=== PATIENT | female | born 1960 | race American Indian/Alaskan Native ===

== ENCOUNTER 2020-12-19 14:29 | Outpatient (REF) | payer OTHER, SELFPAY ==
[2020-12-19 16:39] LABS: Estimated Average Glucose 111 mg/dL; Hemoglobin A1c % 5.5 %
[2020-12-19 16:58] LABS: Alanine Aminotransferase 12 U/L (0-31); Albumin Level 4.1 g/dL (3.5-5.0); Alkaline Phosphatase 74 U/L (39-117); Anion Gap 16 (12-20); Aspartate Amino Transferase 12 U/L (5-31); Bilirubin Direct 0.2 mg/dL (0.0-0.5); Bilirubin Total 0.7 mg/dL (0.0-1.0); Blood Urea Nitrogen 22 mg/dL (9-16); Calcium 9.1 mg/dL (8.4-10.2); Carbon Dioxide 29 mmol/L (22-29); Chloride 99 mmol/L (96-108); Estimated Glomerular Filt Rate 46; Glucose Random 177 mg/dL (60-115); Potassium 3.8 mmol/L (3.3-5.1); Sodium 140 mmol/L (135-145); Total Protein 7.1 g/dL (6.5-8.0)
[2020-12-20 07:07] LABS: LDL Cholesterol Direct 108 mg/dL (<100)
== END 2020-12-19 14:30 | disposition home or self-care (01) ==
LOC: HO.HMGCLDS 14:29
PROVIDERS: PCP Internal Medicine; Visit Provider Internal Medicine
DX: E13.9 Other specified diabetes mellitus without complications (principal); I10 Essential (primary) hypertension; F41.1 Generalized anxiety disorder
CPT/HCPCS: 36415; 80048; 80076; 83036; 83721

== ENCOUNTER 2020-12-23 10:58 | Outpatient (REF) | payer OTHER, SELFPAY ==
[2020-12-23 14:47] LABS: Creatinine Urine 116.94 mg/dL; Microalbum/Creatinine Ratio Ur 5.9 ug/mg cr
== END 2020-12-23 10:59 | disposition home or self-care (01) ==
LOC: HO.HMGCLNP 10:58
PROVIDERS: Visit Provider Internal Medicine
DX: E13.9 Other specified diabetes mellitus without complications (principal); I10 Essential (primary) hypertension; F41.1 Generalized anxiety disorder
CPT/HCPCS: 82043

== ENCOUNTER 2021-05-05 12:38 | Outpatient (REF) | payer OTHER, SELFPAY ==
--- NOTE | ~2021-05-05 | XR_ITS ---
EXAMINATION: XR KNEE, LEFT CLINICAL INFORMATION: Pain in left knee COMPARISON: None TECHNIQUE: Four nonweightbearing views of the left knee. FINDINGS: Marginal osteophytes without definite joint space narrowing involving all compartments. This is most prominent in the patellofemoral compartment. Fabella versus loose body overlies the posterior recess. No effusion. XR/XR knee LT 4V IMPRESSION: Osteoarthritis of the left knee
== END 2021-05-05 12:39 | disposition home or self-care (01) ==
LOC: HO.XRAY 12:38
PROVIDERS: PCP Internal Medicine; Visit Provider Internal Medicine
DX: M25.562 Pain in left knee (principal)
CPT/HCPCS: 73564

== ENCOUNTER → 2021-05-12 12:58 | Outpatient (BNVA) | payer OTHER, SELFPAY | PROVIDERS: Visit Provider Orthopaedic Surgery | DX: M17.11 Unilateral primary osteoarthritis, right knee (principal) | CPT/HCPCS: 20610; 99202; J1040 ==

== ENCOUNTER 2022-01-04 12:19 | Emergency (ER) | payer OTHER, SELFPAY ==
--- NOTE | ~2022-01-04 | CT_ITS ---
EXAMINATION: CT OF THE HEAD WITHOUT CONTRAST CT CERVICAL SPINE WITHOUT CONTRAST CLINICAL INFORMATION: Unable to move left arm for one month. Paresthesias upper extremities. COMPARISON: None. TECHNIQUE: Contiguous axial imaging was performed from the skullbase to vertex without intravenous administration of contrast. Multidetector helical imaging was performed through the cervical spine. DOSE LOWERING TECHNIQUES: This CT examination was performed using dose optimization techniques as appropriate, variously including the following: - Automated exposure control - Adjustment of mA and/or kV according to patient size (this includes techniques or standardized protocols for targeted exams where dose is matched to indication/reason for exam; i.e. extremities or head) - Use of iterative reconstruction technique Dose-Length Product in mGycm: 780.4 FINDINGS: Head: There is no evidence of acute intracranial hemorrhage or territorial infarction. No abnormal mass-effect or midline shift is seen. [place] to white matter differentiation is well preserved. No extra-axial fluid collections are identified. The ventricles are normal in size. There are patchy areas of subcortical and deep cerebral white matter low attenuation. There is no prior for comparison. The osseous structures and soft tissues are normal. The mastoid air cells and visualized portions of the paranasal sinuses are well-aerated. Cervical spine: Straightening of normal lordosis. No prevertebral soft tissue swelling. Advanced degenerative changes at C3-C4, C4-C5 and C5-C6 with posterior disc osteophyte complexes that narrow the thecal space to 6 mm at C5-C6. The discs disease narrows the neural foramina bilaterally at C3-C4 (mild) and C4-C5 (moderate). There is a moderate left pleural effusion measuring simple fluid density. CT/CT cervical spine wo con IMPRESSION: No evidence of territorial infarct or hemorrhage. Patchy areas of subcortical and deep cerebral white matter hypoattenuation are nonspecific and may reflect chronic small vessel ischemic change. However, no priors available for comparison. In light of the patient's symptoms, demyelinating disease or other processes could have a similar appearance. Recommend MRI without and with intravenous contrast. No cervical spine fracture. Advanced degenerative changes at C3-C6 with neural foraminal narrowing bilaterally as above. Moderate left pleural effusion.
[2022-01-04 12:48] VITALS: BP 113/44; BP 135/65; PULSE 66; RESP 18; TEMP 37; O2SAT 100; O2SAT 95; BMI 47.5
--- NOTE | 2022-01-04 12:50 | ED.GENADULT ---
HPI - General Adult General Chief complaint: Weakness Stated complaint: BUE SWELLING/PAIN,NO INJURY PER SNF Time Seen by Provider: 01/04/22 12:28 Source: patient and EMS Mode of arrival: EMS Limitations: no limitations History of Present Illness HPI narrative: Patient comes from a shelter facility via EMS, complaining of bilateral upper extremity paresthesias for 1 month. Also, patient states that for the last month she has been unable to move her left arm. It has documentation from [facility], on December 28, physical exam revealed that the patient had weakness in both upper and lower extremities, but more marked on the left arm. According to the patient, nothing has changed since then. Patient reports no new symptoms. Related Data Home Medications Medication Instructions Recorded Confirmed cholecalciferol (vitamin D3) 25 25 mcg PO DAILY 10/16/20 04/15/21 mcg (1,000 unit) capsule minocycline 100 mg capsule 100 mg PO BID 10/16/20 04/15/21 venlafaxine 150 mg 150 mg PO DAILY 10/16/20 04/15/21 capsule,extended release 24 hr zolpidem 10 mg tablet 10 mg PO BEDTIME PRN 10/16/20 04/15/21 Previous Rx's Medication Instructions Recorded Walker with wheels #1 ea 05/22/21 glipizide 10 mg tablet, extended 10 mg PO DAILY 90 Days #90 tab 07/22/21 release 24 hr atenolol 50 mg-chlorthalidone 25 1 tab PO DAILY 90 Days #90 tab 08/21/21 mg tablet metformin 750 mg tablet,extended 750 mg PO DAILY 90 Days #90 tab 08/21/21 release 24 hr Allergies Allergy/AdvReac Type Severity Reaction Status Date / Time orange Allergy Unknown HIVES Verified 01/04/22 12:47 Review of Systems Review of Systems: Constitutional : No Weight loss, No Fever, No Chills, No Night Sweats, No Fatigue, No Malaise ENT/Mouth : No Hearing loss, No Ear Pain, No Nasal Congestion, No Sinus Pain, No Hoarseness, No sore throat, No Rhinorrhea, No Swallowing Difficulty Eyes: No Eye Pain, No Swelling, No Redness, No Foreign Body, No Discharge, No Vision Changes Cardiovascular : No Chest Pain, No SOB, No Dyspnea on Exertion, No Orthopnea, No Edema, No Palpitations Respiratory : No Cough, No Sputum, No Wheezing, No Smoke Exposure, No Dyspnea Gastrointestinal : No Nausea, No Vomiting, No Diarrhea, No Constipation, No abdominal Pain, No Hematochezia, No Melena Genitourinary : no irregular bleeding, No Dysuria, No Urinary Frequency, No Hematuria, No Urinary Incontinence, No Urgency, No Flank Pain, No Urinary Flow Changes, No Hesitancy Musculoskeletal : Complaining of chronic back pain, no changes, complaining of chronic bilateral extremity weakness and numbness and tingling Skin : No Skin Lesions, No rash Neuro : No Weakness, No Numbness, No Paresthesias, No Loss of Consciousness, No Dizziness, No Headache Psych : No Anxiety/Panic, No Depression, No SI/HI/AH/VH, No Social Issues, Heme/Lymph: No Bruising, No Bleeding,No Lymphadenopathy Endocrine : No Polyuria, No Polydipsia, No Temperature Intolerance [facility] Past Medical History Medical History Anxiety, generalized Diabetes 1.5, managed as type 2 Difficulty sleeping Hypertension, essential Family History Family History Other Mental health disorder Social History Social History Housing: Other (mobile home) Alcohol intake: never Patient Tobacco Use Status: Former Tobacco user Quit Date: quit 8 years ago Advance Directives: No Advance Directives Information Provided: No Current occupational status: disabled Physical Exam ED Vital Signs: Vital Signs - 24 hr 01/04/22 12:48 01/04/22 14:28 Temperature 98.6 F Pulse Rate 66 63 Respiratory Rate 18 18 Blood Pressure 113/44 L 120/48 L Pulse Oximetry 95 97 BMI result Body Mass Index 47.5 Const Other: Appearance: Alert. Oriented X3. No acute distress. Patient is bedbound Eyes: Pupils equal, round and reactive to light. ENT: Pharynx normal. Neck: Normal inspection. Neck supple. No lymph nodes noted. No crepitus CVS: Normal heart rate and rhythm. Pulses normal. Normal S1 and S2 Respiratory: No respiratory distress. Breath sounds normal. No Wheezing. No rales Abdomen: Soft and nontender. No rigidity. No distention. good BS x4 Skin: Skin warm and dry. Normal skin color. Normal skin turgor. Extremities: Chronic lymphedema in upper and lower extremities, patient unable to move her left upper extremity Neuro: Oriented X 3. No motor deficit. No sensory deficit. Moving all extermities. No slurred speech. Course Course Course Narrative: Patient has no acute symptoms. Patient has already been seen and evaluated for her ongoing and chronic bilateral upper extremity paresthesias and weakness on the left arm. At this time, patient has not had a CT scan of the brain/cervical spine. We will go ahead and obtain it today I discussed the CT findings with the patient and her family who is at bedside. Patient will likely need an MRI to rule out demyelinating disease. Patient instructed to follow-up with her primary care physician Medical Decision Making Imaging Data CT scan of the brain and cervical spine: Radiologist's impression: Head: There is no evidence of acute intracranial hemorrhage or territorial infarction. No abnormal mass-effect or midline shift is seen. [place] to white matter differentiation is well preserved. No extra-axial fluid collections are identified. The ventricles are normal in size. There are patchy areas of subcortical and deep cerebral white matter low attenuation. There is no prior for comparison. The osseous structures and soft tissues are normal. The mastoid air cells and visualized portions of the paranasal sinuses are well-aerated. Cervical spine: Straightening of normal lordosis. No prevertebral soft tissue swelling. Advanced degenerative changes at C3-C4, C4-C5 and C5-C6 with posterior disc osteophyte complexes that narrow the thecal space to 6 mm at C5-C6. The discs disease narrows the neural foramina bilaterally at C3-C4 (mild) and C4-C5 (moderate). There is a moderate left pleural effusion measuring simple fluid density. CT/CT cervical spine wo con IMPRESSION: No evidence of territorial infarct or hemorrhage. Patchy areas of subcortical and deep cerebral white matter hypoattenuation are nonspecific and may reflect chronic small vessel ischemic change. However, no priors available for comparison. In light of the patient's symptoms, demyelinating disease or other processes could have a similar appearance. Recommend MRI without and with intravenous contrast. ? No cervical spine fracture. Advanced degenerative changes at C3-C6 with neural foraminal narrowing bilaterally as above. ? Moderate left pleural effusion. Discharge Plan Discharge Clinical Impression: Paresthesia, Upper extremity weakness Patient Disposition: Home, Self-Care Instructions: Paresthesia (ED) Additional Instructions: Please follow-up with your primary care physician tomorrow. It is likely that you will need an MRI to rule out demyelinating disease. If you have any worsening or new symptoms, please return to the emergency room or call 911 Prescriptions: No Action (DME) Walker with wheels See Rx Instructions .Route .MEDSUPPLY Qty: 1 0RF Rx Instructions: As directed glipizide 10 mg tablet extended release 24hr 10 mg PO DAILY 90 Days Qty: 90 0RF metformin 750 mg tablet extended release 24 hr 750 mg PO DAILY 90 Days Qty: 90 0RF atenolol-chlorthalidone 50-25 mg tablet 1 tab PO DAILY 90 Days Qty: 90 0RF minocycline 100 mg capsule 100 mg PO BID 0RF venlafaxine 150 mg capsule,extended release 24hr 150 mg PO DAILY 0RF zolpidem 10 mg tablet 10 mg PO BEDTIME PRN0RF cholecalciferol (vitamin D3) 25 mcg (1,000 unit) capsule 25 mcg PO DAILY 0RF
[2022-01-04 14:28] VITALS: BP 120/48; PULSE 63; RESP 18; O2SAT 97
--- NOTE | 2022-01-04 16:21 | PC.NURSE ---
Pt D/C from ER with instructions. Pt states understanding and denies any further questions. Transport in process of set up back to pt's [facility].
== END 2022-01-04 17:59 | disposition home or self-care (01) ==
PROVIDERS: Emergency Provider Emergency Medicine; PCP Internal Medicine
DX: R20.2 Paresthesia of skin (principal); R53.1 Weakness; E13.9 Other specified diabetes mellitus without complications; I10 Essential (primary) hypertension
CPT/HCPCS: 70450; 72125; 99283; 99284

== ENCOUNTER 2023-02-08 12:06 | Outpatient (REF) | payer OTHER, SELFPAY ==
--- NOTE | ~2023-02-08 | XR_ITS ---
EXAMINATION: XR HIP, RIGHT CLINICAL INFORMATION: Unspecified fall. Pain. COMPARISON: None available. TECHNIQUE: Two views of the right hip. FINDINGS: There is complete right subtrochanteric fracture with overriding of fracture fragments. No dislocation seen. The soft tissues are normal. XR/XR hip RT 1V IMPRESSION: Subtrochanteric fracture right femur with overlapping of fragments. There is no dislocation.
[2023-02-08 13:51] LABS: MANUAL DIFF FLAG NO
[2023-02-08 14:06] LABS: Basophils Absolute Auto 0.1 X10*3/uL (0.0-0.2); Basophils Percent Auto 0.5 % (0-2); Eosinophils Absolute Auto 0.1 X10*3/uL (0.0-0.4); Eosinophils Percent Auto 1.5 % (0-4); Hematocrit 26.1 % (37.0-47.0); Hemoglobin 9.1 g/dl (12.0-16.0); Imm Gran Abs Auto 0.08 X10*3/uL (0.00-0.03); Imm Gran Pct Auto 0.8 % (0.0-0.4); Lymphocytes Percent Auto 10.8 % (20-40); Mean Corpuscular HGB Conc 34.9 g/dl (31.0-35.0); Mean Corpuscular Hemoglobin 31.6 pg (27.0-33.0); Mean Corpuscular Volume 90.6 fL (80.0-98.0); Mean Platelet Volume 10.7 fL (9.4-12.3); Monocytes Absolute Auto 0.5 X10*3/uL (0.1-1.2); Monocytes Percent Auto 5.3 % (2-11); Neutrophils Absolute Auto 7.7 x10*3/uL (2.0-8.3); Neutrophils Percent Auto 81.1 % (45-73); Platelet Count 190 X10*3/uL (160-400); Red Blood Count 2.88 X10*6/uL (4.20-5.50); White Blood Count 9.5 X10*3/uL (4.8-10.8)
[2023-02-08 14:14] LABS: Estimated Average Glucose 111 mg/dL; Hemoglobin A1c % 5.5 %
[2023-02-08 14:44] LABS: Alanine Aminotransferase 15 U/L (0-31); Albumin Level 3.6 g/dL (3.5-5.0); Alkaline Phosphatase 75 U/L (39-117); Anion Gap 15 (12-20); Aspartate Amino Transferase 24 U/L (5-31); Bilirubin Total 0.7 mg/dL (0.0-1.0); Blood Urea Nitrogen 35 mg/dL (9-16); Calcium 8.5 mg/dL (8.4-10.2); Carbon Dioxide 24 mmol/L (22-29); Chloride 105 mmol/L (96-108); Estimated Glomerular Filt Rate 31; Glucose Random 227 mg/dL (60-115); Potassium 3.1 mmol/L (3.3-5.1); Sodium 141 mmol/L (135-145)
[2023-02-08 15:00] LABS: TSH reflex Free T4 3.01 uIU/mL (0.32-4.0)
[2023-02-10 07:03] LABS: LDL Cholesterol Direct 61 mg/dL (<100)
== END 2023-02-08 12:07 | disposition home or self-care (01) ==
LOC: HO.HMGCX 12:06
PROVIDERS: PCP Internal Medicine; Visit Provider Internal Medicine
DX: M25.551 Pain in right hip (principal); E13.9 Other specified diabetes mellitus without complications; E66.01 Morbid (severe) obesity due to excess calories; G82.50 Quadriplegia, unspecified; I10 Essential (primary) hypertension; W19.XXXA Unspecified fall, initial encounter
CPT/HCPCS: 36415; 73501; 80053; 83036; 83721; 84443; 85025

== ENCOUNTER 2023-08-05 07:49 | Outpatient (AMB) | payer MEDICAID, SELFPAY ==
--- NOTE | 2023-08-05 07:51 | MHC.PC.OV ---
Intake Visit Reasons: F/u 4 month [phone] (android) Allergies orange Allergy (Unknown, Verified 02/08/23 11:49) HIVES Medication List - Last Reconciled 08/05/23 by Evan Bates MD amlodipine 10 mg PO .Q AM ascorbic acid (vitamin C) 250 mg PO BID bupropion HCl 150 mg PO BEDTIME calcium carbonate 500 mg PO TID 90 days cholecalciferol (vitamin D3) 25 mcg PO DAILY citalopram 40 mg PO DAILY cyanocobalamin (vitamin B-12) (Vitamin B-12) 1,000 mcg PO DAILY ferrous sulfate 325 mg PO TID 90 days folic acid 1 mg PO DAILY furosemide 40 mg PO DAILY insulin glargine (Lantus Solostar U-100 Insulin) 32 units (0.32 mL) subcut QPM 90 days metoprolol succinate ER 100 mg PO DAILY pen needle, diabetic As directed [Walker with wheels As directed] Tobacco use date assessed: 08/05/23 Dental Screening Dental Screen Date: 08/05/23 HPI F/u 4 month [phone] (android) HPI Details Patient is 62-year-old female this is a tele medicine visit after being discharged from she could be rehab on 07/08/2023, admission date was 03/30/2023 For detailed history please see my previous notes. 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 Patient presented to ER for increasing weakness and wanted a rehab. 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 along with metoprolol 100 mg once a day for blood pressure controlled Patient was discharged with potassium chloride 20 mEq for hypokalemia we need to repeat labs She is also on iron supplement Patient is to continue Celexa 40 mg and bupropion 150 mg for depression and anxiety. Her is checking her blood sugars at home however he tells me that patient ran out of insulin and he is only giving her metformin I have sent Lantus patient is on 32 units at night, we should hold metformin due to kidney disease. is also monitoring blood sugar but since patient does not have insulin it was 212 at night. They also need a script for diapers patient is wearing 2 XL and it is being changed 3 times a day Patient have a FORMSTONE [employer]TER come over 2 times a day in the morning and at night for personal hygiene. She also have a physical therapist that comes over 2 times a week. All medications need refill. We will book and other appointment in 2 months [facility] Medical History Difficulty sleeping Anxiety, generalized Diabetes 1.5, managed as type 2 Hypertension, essential Family History Other Mental health disorder Social History Housing: Other (mobile home) Alcohol intake: never Patient Tobacco Use Status: Former Tobacco user Quit Date: quit 8 years ago e-Cigarette/Vaping Use: Never Used Current occupational status: disabled Cognitive needs: No Hearing needs: No Vision needs: No Questionnaire PHQ-9 Over the last 2 weeks, how often have you been bothered by any of the following problems? 1. Little interest or pleasure in doing things: more than half the days 2. Feeling down, depressed, or hopeless: more than half the days 3. Trouble falling or staying asleep, or sleeping too much: nearly every day 4. Feeling tired or having little energy: nearly every day 5. Poor appetite or overeating: not at all 6. Feeling bad about yourself - or that you are a failure or have let yourself or your family down: more than half the days 7. Trouble concentrating on things, such as reading the newspaper or watching television: not at all 8. Moving or speaking so slowly that other people could have noticed. Or the opposite - being so fidgety or restless that you have been moving around a lot more than usual: nearly every day 9. Thoughts that you would be better off or of hurting yourself in some way: not at all Total score: 15 Depression Screening Interpretation: Positive Depression Screening Follow-up: Existing condition and In treatment Depression Screening Done: Yes 71749 - PHQ-9 Billing: Yes Source: Developed by Drs. Xavier Neal, Brianne Flores, Fran Cifuentes and colleagues, with an educational sepideh from [employer]. Thrive Questionnaire Date Thrive assessed: 04/15/21 AUDIT C Alcohol Use Questionnaire (AUDIT-C) 1. How often do you have a drink containing alcohol?: Never 3. How often do you have six or more drinks on one occasion?: Never Total Score: 0 Review of Systems Const Denies chills, Denies fever(s), Denies night sweats and Denies weight loss Eyes Denies blurry vision and Denies eye discharge ENT Denies dysphagia, Denies sinus pressure and Denies sore throat Card Denies chest pain at rest and Denies palpitations Resp Denies chest congestion, Denies cough and Denies hemoptysis GI Denies dysphagia and Denies nausea Skin/Breast Denies pruritus, Denies non-healing lesions and Denies rash Psych Denies panic attacks and Denies paranoia Endo Denies cold intolerance, Denies heat intolerance and Denies palpitations Papito/Lymph Denies easy bleeding Physical exam (Primary Care) Tobacco/Smoking Status: Tobacco use Status Tobacco use date assessed 08/05/23 08/05/23 08:06 Patient Tobacco Use Status Former Tobacco user 08/05/23 07:53 e-Cigarette/Vaping Use Never Used 08/05/23 07:53 PHQ-9: PHQ-9 Score PHQ-9: Total score 15 08/05/23 08:18 Depression Screening Interpretation: Positive Depression Screening Follow-up: Existing condition and In treatment Thrive Assessment: Date of Thrive Assessment Date Thrive assessed 04/15/21 08/05/23 07:53 Telehealth Telehealth Location of provider rendering services: practice address Location of patient: address on file Patient Identification confirmed using: Name, : Yes Telehealth method: video Patient verbally consented to treatment: Yes Patient verbally consented to billing insurance company: Yes Patient informed of any privacy concerns related to visit: Yes Assessment and Plan Assessment & Plan (1) Quadriplegia: Code(s): G82.50 - Quadriplegia, unspecified (2) Fecal soiling due to fecal incontinence: Code(s): R15.9 - Full incontinence of feces (3) Incontinence overflow, urine: Code(s): N39.490 - Overflow incontinence (4) Diabetic neuropathy: Code(s): E11.40 - Type 2 diabetes mellitus with diabetic neuropathy, unspecified Qualifiers: Diabetes mellitus complication detail: diabetic polyneuropathy Diabetes mellitus type: type 2 Qualified Code(s): E11.42 - Type 2 diabetes mellitus with diabetic polyneuropathy (5) Morbid obesity due to excess calories: Code(s): E66.01 - Morbid (severe) obesity due to excess calories (6) Anxiety, generalized: Code(s): F41.1 - Generalized anxiety disorder (7) Diabetes 1.5, managed as type 2: Code(s): E13.9 - Other specified diabetes mellitus without complications (8) Hypertension, essential: Code(s): I10 - Essential (primary) hypertension (9) Major depression, recurrent: Code(s): F33.9 - Major depressive disorder, recurrent, unspecified Qualifiers: Active/Remission status: in partial remission Qualified Code(s): F33.41 - Major depressive disorder, recurrent, in partial remission (10) Chronic kidney disease, stage 3b: Code(s): N18.32 - Chronic kidney disease, stage 3b (11) Insulin dependent type 2 diabetes mellitus: Code(s): E11.9 - Type 2 diabetes mellitus without complications; Z79.4 - snf (current) use of insulin (12) watermaster (current) use of insulin: Code(s): Z79.4 - watermaster (current) use of insulin (13) Type 2 diabetes mellitus with other diabetic kidney complication: Code(s): E11.29 - Type 2 diabetes mellitus with other diabetic kidney complication Plan Patient is 62-year-old female this is a tele medicine visit after being discharged from she could be rehab on 07/08/2023, admission date was 03/30/2023 For detailed history please see my previous notes. 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 Patient presented to ER for increasing weakness and wanted a rehab. 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 along with metoprolol 100 mg once a day for blood pressure controlled Patient was discharged with potassium chloride 20 mEq for hypokalemia we need to repeat labs She is also on iron supplement Patient is to continue Celexa 40 mg and bupropion 150 mg for depression and anxiety. Her is checking her blood sugars at home however he tells me that patient ran out of insulin and he is only giving her metformin I have sent Lantus patient is on 32 units at night, we should hold metformin due to kidney disease. is also monitoring blood sugar but since patient does not have insulin it was 212 at night. They also need a script for diapers patient is wearing 2 XL and it is being changed 3 times a day Patient have a FORMSTONE FITTER come over 2 times a day in the morning and at night for personal hygiene. She also have a physical therapist that comes over 2 times a week. All medications need refill. We will book and other appointment in 2 months Medications: New [Adult diapers] As directed 100 ea 11RF G82.50 - Quadriplegia, unspecified, N39.490 - Overflow incontinence, R15.9 - Full incontinence of feces Changed From ferrous sulfate 325 mg PO TID 90 days 270 tabs 0RF To ferrous sulfate 325 mg PO DAILY 90 tabs 0RF 90 days From furosemide 40 mg PO DAILY 90 tabs 0RF To furosemide 20 mg PO DAILY 90 tabs 0RF 90 days From calcium carbonate 500 mg PO TID 90 days 270 tabs 0RF To calcium carbonate 500 mg PO ONCE 90 tabs 0RF 90 days Refilled ascorbic acid (vitamin C) 250 mg PO BID 90 tabs 0RF cholecalciferol (vitamin D3) 25 mcg PO DAILY 90 caps 0RF folic acid 1 mg PO DAILY 90 tabs 0RF metoprolol succinate ER 100 mg PO DAILY 90 tabs 0RF amlodipine 10 mg PO .Q AM 90 tabs 0RF bupropion HCl 150 mg PO BEDTIME 90 tabs 0RF citalopram 40 mg PO DAILY 90 tabs 0RF cyanocobalamin (vitamin B-12) (Vitamin B-12) 1,000 mcg PO DAILY 90 tabs 0RF insulin glargine (Lantus Solostar U-100 Insulin) 32 units (0.32 mL) subcut QPM 28.8 mL 3RF 90 days pen needle, diabetic As directed 100 ea 0RF E13.9 - Other specified diabetes mellitus without complications Coding Level of Care Code Tele Est Pt Level 5 (60404) Diagnoses Quadriplegia G82.50 Fecal soiling due to fecal incontinence R15.9 Incontinence overflow, urine N39.490 Diabetic polyneuropathy associated with type 2 diabetes mellitus E11.42 Diabetes mellitus complication detail: diabetic polyneuropathy Diabetes mellitus type: type 2 Morbid obesity due to excess calories E66.01 Anxiety, generalized F41.1 Diabetes 1.5, managed as type 2 E13.9 Hypertension, essential I10 Recurrent major depressive disorder, in partial remission F33.41 Active/Remission status: in partial remission Chronic kidney disease, stage 3b N18.32 Insulin dependent type 2 diabetes mellitus E11.9; Z79.4 watermaster (current) use of insulin Z79.4 Type 2 diabetes mellitus with other diabetic kidney complication E11.29 Time Spent (min) 46 Comment 10 minute prep, 16 with patient, 20 charting/coordination of care
== END 2023-08-05 14:14 | disposition home or self-care (01) ==
LOC: HO.HMGC 07:49
PROVIDERS: PCP Internal Medicine; Visit Provider Internal Medicine
DX: I12.9 Hypertensive chronic kidney disease with stage 1 through stage 4 chronic kidney disease, or unspecified chronic kidney disease (principal); E11.42 Type 2 diabetes mellitus with diabetic polyneuropathy; E66.01 Morbid (severe) obesity due to excess calories; N18.32 Chronic kidney disease, stage 3b; G82.50 Quadriplegia, unspecified; F33.41 Major depressive disorder, recurrent, in partial remission; E11.29 Type 2 diabetes mellitus with other diabetic kidney complication; Z79.4 Long term (current) use of insulin; R15.9 Full incontinence of feces; F41.1 Generalized anxiety disorder; N39.490 Overflow incontinence
CPT/HCPCS: 99215

== ENCOUNTER 2023-10-06 09:14 | Outpatient (AMB) | payer MEDICAID, SELFPAY ==
--- NOTE | 2023-10-06 09:45 | A.OFFPC_ITS ---
Intake Visit Reasons: 2 month follow up Med Allergies orange Allergy (Unknown, Verified 10/06/23 09:46) HIVES Medication List - Last Reconciled 10/06/23 by Evan Bates MD [Adult diapers As directed] amlodipine 10 mg PO .Q AM ascorbic acid (vitamin C) 250 mg PO BID bupropion HCl 150 mg PO BEDTIME calcium carbonate 500 mg PO ONCE 90 days cholecalciferol (vitamin D3) 25 mcg PO DAILY citalopram 40 mg PO DAILY cyanocobalamin (vitamin B-12) (Vitamin B-12) 1,000 mcg PO DAILY ferrous sulfate 325 mg PO DAILY 90 days folic acid 1 mg PO DAILY furosemide 20 mg PO DAILY 90 days insulin glargine (Lantus Solostar U-100 Insulin) 32 units (0.32 mL) subcut QPM 90 days metoprolol succinate ER 100 mg PO DAILY pen needle, diabetic As directed [Walker with wheels As directed] Tobacco use date assessed: 10/06/23 Dental Screening Dental Screen Date: 10/06/23 Did you have a dental visit in the last 12 months?: No Did you have a dental problem in the last 6 months where you did not have access to dental care?: No Was dental information given to patient?: No HPI 2 month follow up Med HPI Details Patient is 62-year-old female this is a tele medicine video conference follow-up Patient is in her usual state of health, she is having a good patient and physical therapist come over She tells me that she feels she is getting stronger patient is quadriplegic Patient have chronic kidney disease stage 3, she is due for labs Diabetes mellitus on long-acting insulin and insulin sliding scale She is on Lantus 32 units at night and 4 units of lispro insulin with dinner Her last hemoglobin A1c dated 04/28/2023 was 5.8% Sugars are running around 160 is fasting Depression and anxiety is being treated with Celexa and Wellbutrin Blood pressure stable with amlodipine and metoprolol Patient have a diagnosis of functional quadriplegia History of Closed fracture of right femur 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 along with metoprolol 100 mg once a day for blood pressure controlled She is also on iron supplement She wears diaper secondary to fecal and urine incontinence 2 XL and it is being changed 3 times a day Patient have a WELFARE OFFICER come over 2 times a day in the morning and at night for personal hygiene. She also have a physical therapist that comes over 2 times a week. She is requesting sleeping pill as patient is not able to sleep at night I have sent med does open 30 mg PFSH Medical History Difficulty sleeping Anxiety, generalized Diabetes 1.5, managed as type 2 Hypertension, essential Family History Other Mental health disorder Social History Housing: Other (mobile home) Alcohol intake: never Patient Tobacco Use Status: Former Tobacco user Quit Date: quit 8 years ago e-Cigarette/Vaping Use: Never Used Current occupational status: disabled Cognitive needs: No Hearing needs: No Vision needs: No Questionnaire Thrive Questionnaire Date Thrive assessed: 04/15/21 AUDIT C Alcohol Use Questionnaire (AUDIT-C) 1. How often do you have a drink containing alcohol?: Never 3. How often do you have six or more drinks on one occasion?: Never Total Score: 0 Score Reviewed/Action Taken: Yes Review of Systems Const Denies chills and Denies fever(s) ENT Denies epistaxis and Denies nasal discharge Card Denies chest pain Resp Denies chest congestion, Denies cough and Denies hemoptysis GI Denies nausea Skin/Breast Denies rash Neuro Reports no additional complaints Psych Reports no additional complaints Endo Reports no additional complaints Physical exam (Primary Care) Tobacco/Smoking Status: Tobacco use Status Tobacco use date assessed 10/06/23 10/06/23 09:47 Patient Tobacco Use Status Former Tobacco user 10/06/23 09:47 e-Cigarette/Vaping Use Never Used 10/06/23 09:47 Thrive Assessment: Date of Thrive Assessment Date Thrive assessed 04/15/21 10/06/23 09:47 Telehealth Telehealth Location of provider rendering services: practice address Location of patient: address on file Patient Identification confirmed using: Name, : Yes Telehealth method: video Patient verbally consented to treatment: Yes Patient verbally consented to billing insurance company: Yes Patient informed of any privacy concerns related to visit: Yes Assessment and Plan Assessment & Plan (1) Type 2 diabetes mellitus with other diabetic kidney complication: Code(s): E11.29 - Type 2 diabetes mellitus with other diabetic kidney complication (2) intermediate manager (current) use of insulin: Code(s): Z79.4 - intermediate manager (current) use of insulin (3) Chronic kidney disease, stage 3b: Code(s): N18.32 - Chronic kidney disease, stage 3b (4) Major depression, recurrent: Code(s): F33.9 - Major depressive disorder, recurrent, unspecified Qualifiers: Active/Remission status: in partial remission Qualified Code(s): F33.41 - Major depressive disorder, recurrent, in partial remission (5) Quadriplegia: Code(s): G82.50 - Quadriplegia, unspecified (6) Diabetic neuropathy: Code(s): E11.40 - Type 2 diabetes mellitus with diabetic neuropathy, unspecified Qualifiers: Diabetes mellitus complication detail: diabetic polyneuropathy Diabetes mellitus type: type 2 Qualified Code(s): E11.42 - Type 2 diabetes mellitus with diabetic polyneuropathy (7) Fecal soiling due to fecal incontinence: Code(s): R15.9 - Full incontinence of feces (8) Incontinence overflow, urine: Code(s): N39.490 - Overflow incontinence (9) Anxiety, generalized: Code(s): F41.1 - Generalized anxiety disorder (10) Hypertension, essential: Code(s): I10 - Essential (primary) hypertension Plan Patient is 62-year-old female this is a tele medicine video conference follow-up Patient is in her usual state of health, she is having a good patient and physical therapist come over She tells me that she feels she is getting stronger patient is quadriplegic Patient have chronic kidney disease stage 3, she is due for labs Diabetes mellitus on long-acting insulin and insulin sliding scale She is on Lantus 32 units at night and 4 units of lispro insulin with dinner Her last hemoglobin A1c dated 04/28/2023 was 5.8% Sugars are running around 160 is fasting Depression and anxiety is being treated with Celexa and Wellbutrin Blood pressure stable with amlodipine and metoprolol Patient have a diagnosis of functional quadriplegia History of Closed fracture of right femur 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 along with metoprolol 100 mg once a day for blood pressure controlled She is also on iron supplement She wears diaper secondary to fecal and urine incontinence 2 XL and it is being changed 3 times a day Patient have a WELFARE OFFICER come over 2 times a day in the morning and at night for personal hygiene. She also have a physical therapist that comes over 2 times a week. She is requesting sleeping pill as patient is not able to sleep at night I have sent med does open 30 mg Orders: Orders Hemoglobin A1c Today E11.29 - Type 2 diabetes mellitus with other diabetic kidney complication, E11.40 - Type 2 diabetes mellitus with diabetic neuropathy, unspecified, F33.9 - Major depressive disorder, recurrent, unspecified, G82.50 - Quadriplegia, unspecified, N18.32 - Chronic kidney disease, stage 3b, Z79.4 - custodial (current) use of insulin Complete Blood Count Auto Diff Today E11.29 - Type 2 diabetes mellitus with other diabetic kidney complication, E11.40 - Type 2 diabetes mellitus with diabetic neuropathy, unspecified, F33.9 - Major depressive disorder, recurrent, unspecified, G82.50 - Quadriplegia, unspecified, N18.32 - Chronic kidney disease, stage 3b, Z79.4 - intermediate manager (current) use of insulin LDL Cholesterol Direct Today E11.29 - Type 2 diabetes mellitus with other diabetic kidney complication, E11.40 - Type 2 diabetes mellitus with diabetic neuropathy, unspecified, F33.9 - Major depressive disorder, recurrent, unspecified, G82.50 - Quadriplegia, unspecified, N18.32 - Chronic kidney disease , stage 3b, Z79.4 - intermediate manager (current) use of insulin Comprehensive Met. Panel Today E11.29 - Type 2 diabetes mellitus with other diabetic kidney complication, E11.40 - Type 2 diabetes mellitus with diabetic neuropathy, unspecified, F33.9 - Major depressive disorder, recurrent, unspecified, G82.50 - Quadriplegia, unspecified, N18.32 - Chronic kidney disease, stage 3b, Z79.4 - custodial (current) use of insulin Ferritin Today E11.29 - Type 2 diabetes mellitus with other diabetic kidney complication, E11.40 - Type 2 diabetes mellitus with diabetic neuropathy, unspecified, F33.9 - Major depressive disorder, recurrent, unspecified, G82.50 - Quadriplegia, unspecified, N18.32 - Chronic kidney disease, stage 3b, Z79.4 - custodial (current) use of insulin TSH reflex Free T4 Today E11.29 - Type 2 diabetes mellitus with other diabetic kidney complication, E11.40 - Type 2 diabetes mellitus with diabetic neuropathy, unspecified, F33.9 - Major depressive disorder, recurrent, unspecified, G82.50 - Quadriplegia, unspecified, N18.32 - Chronic kidney disease, stage 3b, Z79.4 - custodial (current) use of insulin [facility]errals [facility] Referral E11.29 - Type 2 diabetes mellitus with other diabetic kidney complication, G82.50 - Quadriplegia, unspecified, Z79.4 - custodial (current) use of insulin Medications: New mirtazapine 30 mg PO BEDTIME 30 tabs 0RF To sleep Coding Level of Care Code Tele Est Pt Level 4 (65458) Diagnoses Type 2 diabetes mellitus with other diabetic kidney complication E11.29 intermediate manager (current) use of insulin Z79.4 Chronic kidney disease, stage 3b N18.32 Recurrent major depressive disorder, in partial remission F33.41 Active/Remission status: in partial remission Quadriplegia G82.50 Diabetic polyneuropathy associated with type 2 diabetes mellitus E11.42 Diabetes mellitus complication detail: diabetic polyneuropathy Diabetes mellitus type: type 2 Fecal soiling due to fecal incontinence R15.9 Incontinence overflow, urine N39.490 Anxiety, generalized F41.1 Hypertension, essential I10 Time Spent (min) 30 Comment 5 prep, 14 with patient, 11 min charting/ coordination of care
== END 2023-10-06 12:00 | disposition home or self-care (01) ==
LOC: HO.HMGC 09:14
PROVIDERS: PCP Internal Medicine; Visit Provider Internal Medicine
DX: E11.29 Type 2 diabetes mellitus with other diabetic kidney complication (principal); Z79.4 Long term (current) use of insulin; N18.32 Chronic kidney disease, stage 3b; F33.41 Major depressive disorder, recurrent, in partial remission; G82.50 Quadriplegia, unspecified; E11.42 Type 2 diabetes mellitus with diabetic polyneuropathy; R15.9 Full incontinence of feces; N39.490 Overflow incontinence; F41.1 Generalized anxiety disorder; I10 Essential (primary) hypertension
CPT/HCPCS: 99214

== ENCOUNTER 2024-01-31 13:54 | Outpatient (AMB) | payer OTHER, SELFPAY ==
--- NOTE | 2024-01-31 14:04 | MHC.PC.OV ---
Intake Visit Reasons: Follow up/ Missed appt~/[phone] Allergies orange Allergy (Unknown, Verified 01/31/24 14:05) HIVES Medication List - Last Reconciled 01/31/24 by Evan Bates MD [Adult diapers As directed] amlodipine 10 mg PO .Q AM ascorbic acid (vitamin C) 250 mg PO BID bupropion HCl 150 mg PO BEDTIME calcium carbonate 500 mg PO ONCE 90 days cholecalciferol (vitamin D3) 25 mcg PO DAILY citalopram 40 mg PO DAILY cyanocobalamin (vitamin B-12) (Vitamin B-12) 1,000 mcg PO DAILY ferrous sulfate 325 mg PO DAILY 90 days folic acid 1 mg PO DAILY furosemide 20 mg PO DAILY 90 days insulin glargine (Lantus Solostar U-100 Insulin) 32 units (0.32 mL) subcut QPM 90 days metoprolol succinate ER 100 mg PO DAILY mirtazapine 30 mg PO BEDTIME pen needle, diabetic As directed [Walker with wheels As directed] Tobacco use date assessed: 01/31/24 Dental Screening Dental Screen Date: 01/31/24 Did you have a dental visit in the last 12 months?: No Did you have a dental problem in the last 6 months where you did not have access to dental care?: No Was dental information given to patient?: No HPI Follow up/ Missed appt~/[phone] HPI Details Patient is 63-year-old female this is a tele medicine video conference follow-up Patient is gradually recovering, she is getting stronger patient is quadriplegic Diabetes mellitus on long-acting insulin and insulin sliding scale She is on Lantus 32 units at night and 4 units of lispro insulin with dinner She tells me that her fasting sugar is running around 200 She is requesting a script for Trulicity which I have sent. I have told her to hold her long-acting insulin when she start Trulicity Monitor her fasting sugar and then we can see how much insulin she needs. 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 along with metoprolol 100 mg once a day for blood pressure controlled She is also on iron supplement She wears diaper secondary to fecal and urine incontinence 2 XL and it is being changed 3 times a day Patient have a TUBE SIZER OPERATOR come over 2 times a day in the morning and at night for personal hygiene. She also have a physical therapist that comes over 2 times a week. She is taking bupropion for depression 150 mg at bedtime And citalopram 40 mg She takes mirtazapine 30 mg at bedtime as a sleep aid Lab order placed again, printed we will be billing that to her so visiting nurse can draw the blood. [facility] Medical History Difficulty sleeping Anxiety, generalized Diabetes 1.5, managed as type 2 Hypertension, essential Family History Other Mental health disorder Social History Housing: Other (mobile home) Alcohol intake: never Patient Tobacco Use Status: Former Tobacco user Quit Date: quit 8 years ago e-Cigarette/Vaping Use: Never Used Current occupational status: disabled Cognitive needs: No Hearing needs: No Vision needs: No Questionnaire Thrive Questionnaire Date Thrive assessed: 04/15/21 Review of Systems Const Denies chills and Denies fever(s) ENT Denies epistaxis and Denies nasal discharge Card Denies chest pain Resp Denies hemoptysis GI Denies diarrhea and Denies nausea Skin/Breast Denies rash Neuro Reports no additional complaints Psych Reports no additional complaints Endo Reports no additional complaints Physical exam (Primary Care) Tobacco/Smoking Status: Tobacco use Status Tobacco use date assessed 01/31/24 01/31/24 14:05 Patient Tobacco Use Status Former Tobacco user 01/31/24 14:05 e-Cigarette/Vaping Use Never Used 01/31/24 14:05 Thrive Assessment: Date of Thrive Assessment Date Thrive assessed 04/15/21 01/31/24 14:05 Telehealth Telehealth Location of provider rendering services: practice address Location of patient: address on file Patient Identification confirmed using: Name, : Yes Telehealth method: video Patient verbally consented to treatment: Yes Patient verbally consented to billing insurance company: Yes Patient informed of any privacy concerns related to visit: Yes Assessment and Plan Assessment & Plan (1) Respiratory tract congestion with cough: Code(s): R05.8 - Other specified cough (2) Type 2 diabetes mellitus with other diabetic kidney complication: Code(s): E11.29 - Type 2 diabetes mellitus with other diabetic kidney complication (3) USP (current) use of insulin: Code(s): Z79.4 - USP (current) use of insulin (4) Chronic kidney disease, stage 3b: Code(s): N18.32 - Chronic kidney disease, stage 3b (5) Major depression, recurrent: Code(s): F33.9 - Major depressive disorder, recurrent, unspecified Qualifiers: Active/Remission status: in partial remission Qualified Code(s): F33.41 - Major depressive disorder, recurrent, in partial remission (6) Incontinence overflow, urine: Code(s): N39.490 - Overflow incontinence (7) Quadriplegia: Code(s): G82.50 - Quadriplegia, unspecified (8) Hypertension, essential: Code(s): I10 - Essential (primary) hypertension (9) Anxiety, generalized: Code(s): F41.1 - Generalized anxiety disorder (10) Difficulty sleeping: Code(s): G47.9 - Sleep disorder, unspecified (11) Morbid obesity due to excess calories: Code(s): E66.01 - Morbid (severe) obesity due to excess calories (12) Diabetic neuropathy: Code(s): E11.40 - Type 2 diabetes mellitus with diabetic neuropathy, unspecified Qualifiers: Diabetes mellitus complication detail: diabetic polyneuropathy Diabetes mellitus type: type 2 Qualified Code(s): E11.42 - Type 2 diabetes mellitus with diabetic polyneuropathy (13) Fecal soiling due to fecal incontinence: Code(s): R15.9 - Full incontinence of feces Plan Patient is 63-year-old female this is a tele medicine video conference follow-up Currently fighting a chest cold, coughing green phlegm and it has been happening for the past 2 weeks I have sent azithromycin for the patient as patient is immobile and can easily get pneumonia Patient is gradually recovering, she is getting stronger patient is quadriplegic Diabetes mellitus on long-acting insulin and insulin sliding scale She is on Lantus 32 units at night and 4 units of lispro insulin with dinner She tells me that her fasting sugar is running around 200 She is requesting a script for Trulicity which I have sent. I have told her to hold her long-acting insulin when she start Trulicity Monitor her fasting sugar and then we can see how much insulin she needs. 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 along with metoprolol 100 mg once a day for blood pressure controlled She is also on iron supplement She wears diaper secondary to fecal and urine incontinence 2 XL and it is being changed 3 times a day Patient have a TUBE SIZER OPERATOR come over 2 times a day in the morning and at night for personal hygiene. She also have a physical therapist that comes over 2 times a week. She is taking bupropion for depression 150 mg at bedtime And citalopram 40 mg She takes mirtazapine 30 mg at bedtime as a sleep aid Lab order placed again, printed we will be billing that to her so visiting nurse can draw the blood. Orders: Orders Magnesium Today E11.29 - Type 2 diabetes mellitus with other diabetic kidney complication, E66.01 - Morbid (severe) obesity due to excess calories, F33.9 - Major depressive disorder, recurrent, unspecified, F41.1 - Generalized anxiety disorder, G47.9 - Sleep disorder, unspecified, G82.50 - Quadriplegia, unspecified, I10 - Essential (primary) hypertension, N18.32 - Chronic kidney disease, stage 3b, N39.490 - Overflow incontinence, Z79.4 - USP (current) use of insulin Vitamin D 25-OH (D2 and D3) Today E11.29 - Type 2 diabetes mellitus with other diabetic kidney complication, E66.01 - Morbid (severe) obesity due to excess calories, F33.9 - Major depressive disorder, recurrent, unspecified, F41.1 - Generalized anxiety disorder, G47.9 - Sleep disorder, unspecified, G82.50 - Quadriplegia, unspecified, I10 - Essential (primary) hypertension, N18.32 - Chronic kidney disease, stage 3b, N39.490 - Overflow incontinence, Z79.4 - USP (current) use of insulin Hemoglobin A1c Today E11.9 - Type 2 diabetes mellitus without complications, Z79.4 - intermodal owner operator truck driver (current) use of insulin Complete Blood Count Auto Diff Today E11.29 - Type 2 diabetes mellitus with other diabetic kidney complication, E66.01 - Morbid (severe) obesity due to excess calories, F33.9 - Major depressive disorder, recurrent, unspecified, F41.1 - Generalized anxiety disorder, G47.9 - Sleep disorder, unspecified, G82.50 - Quadriplegia, unspecified, I10 - Essential (primary) hypertension, N18.32 - Chronic kidney disease, stage 3b, N39.490 - Overflow incontinence, Z79.4 - intermodal owner operator truck driver (current) use of insulin Comprehensive Met. Panel Today E11.29 - Type 2 diabetes mellitus with other diabetic kidney complication, E66.01 - Morbid (severe) obesity due to excess calories, F33.9 - Major depressive disorder, recurrent, unspecified, F41.1 - Generalized anxiety disorder, G47.9 - Sleep disorder, unspecified, G82.50 - Quadriplegia, unspecified, I10 - Essential (primary) hypertension, N18.32 - Chronic kidney disease, stage 3b, N39.490 - Overflow incontinence, Z79.4 - intermodal owner operator truck driver (current) use of insulin Ferritin Today E11.29 - Type 2 diabetes mellitus with other diabetic kidney complication, E66.01 - Morbid (severe) obesity due to excess calories, F33.9 - Major depressive disorder, recurrent, unspecified, F41.1 - Generalized anxiety disorder, G47.9 - Sleep disorder, unspecified, G82.50 - Quadriplegia, unspecified, I10 - Essential (primary) hypertension, N18.32 - Chronic kidney disease, stage 3b, N39.490 - Overflow incontinence, Z79.4 - USP (current) use of insulin Folate Today E11.29 - Type 2 diabetes mellitus with other diabetic kidney complication, E66.01 - Morbid (severe) obesity due to excess calories, F33.9 - Major depressive disorder, recurrent, unspecified, F41.1 - Generalized anxiety disorder, G47.9 - Sleep disorder, unspecified, G82.50 - Quadriplegia, unspecified, I10 - Essential (primary) hypertension, N18.32 - Chronic kidney disease, stage 3b, N39.490 - Overflow incontinence, Z79.4 - intermodal owner operator truck driver (current) use of insulin LDL Cholesterol Direct Today E11.29 - Type 2 diabetes mellitus with other diabetic kidney complication, E66.01 - Morbid (severe) obesity due to excess calories, F33.9 - Major depressive disorder, recurrent, unspecified, F41.1 - Generalized anxiety disorder, G47.9 - Sleep disorder, unspecified, G82.50 - Quadriplegia, unspecified, I10 - Essential (primary) hypertension, N18.32 - Chronic kidney disease, stage 3b, N39.490 - Overflow incontinence, Z79.4 - intermodal owner operator truck driver (current) use of insulin Vitamin B12 Today E11.29 - Type 2 diabetes mellitus with other diabetic kidney complication, E66.01 - Morbid (severe) obesity due to excess calories, F33.9 - Major depressive disorder, recurrent, unspecified, F41.1 - Generalized anxiety disorder, G47.9 - Sleep disorder, unspecified, G82.50 - Quadriplegia, unspecified, I10 - Essential (primary) hypertension, N18.32 - Chronic kidney disease, stage 3b, N39.490 - Overflow incontinence, Z79.4 - intermodal owner operator truck driver (current) use of insulin TSH reflex Free T4 Today E11.29 - Type 2 diabetes mellitus with other diabetic kidney complication, E66.01 - Morbid (severe) obesity due to excess calories, F33.9 - Major depressive disorder, recurrent, unspecified, F41.1 - Generalized anxiety disorder, G47.9 - Sleep disorder, unspecified, G82.50 - Quadriplegia, unspecified, I10 - Essential (primary) hypertension, N18.32 - Chronic kidney disease, stage 3b, N39.490 - Overflow incontinence, Z79.4 - intermodal owner operator truck driver (current) use of insulin Medications: New dulaglutide (Trulicity) 0.75 mg (0.5 mL) subcut QWEEK 6.5 mL 0RF 90 days E11.29 - Type 2 diabetes mellitus with other diabetic kidney complication, E11.9 - Type 2 diabetes mellitus without complications, Z79.4 - intermodal owner operator truck driver (current) use of insulin azithromycin Take 2 tablets today then 1 daily 250 mg PO ONCE 6 tabs 0RF 5 days J06.9 - Acute upper respiratory infection, unspecified Coding Level of Care Code Est Pt Level 5 (57091) Diagnoses Respiratory tract congestion with cough R05.8 Type 2 diabetes mellitus with other diabetic kidney complication E11.29 intermodal owner operator truck driver (current) use of insulin Z79.4 Chronic kidney disease, stage 3b N18.32 Recurrent major depressive disorder, in partial remission F33.41 Active/Remission status: in partial remission Incontinence overflow, urine N39.490 Quadriplegia G82.50 Hypertension, essential I10 Anxiety, generalized F41.1 Difficulty sleeping G47.9 Morbid obesity due to excess calories E66.01 Diabetic polyneuropathy associated with type 2 diabetes mellitus E11.42 Diabetes mellitus complication detail: diabetic polyneuropathy Diabetes mellitus type: type 2 Fecal soiling due to fecal incontinence R15.9 Time Spent (min) 40 Comment 5 pre visit, 18 with patient, 7 charting, 10 min coordination of care
== END 2024-01-31 15:55 | disposition home or self-care (01) ==
LOC: HO.HMGC 13:54
PROVIDERS: PCP Internal Medicine; Visit Provider Internal Medicine
DX: E11.29 Type 2 diabetes mellitus with other diabetic kidney complication (principal); Z79.4 Long term (current) use of insulin; N18.32 Chronic kidney disease, stage 3b; F33.41 Major depressive disorder, recurrent, in partial remission; G82.50 Quadriplegia, unspecified; E66.01 Morbid (severe) obesity due to excess calories; E11.42 Type 2 diabetes mellitus with diabetic polyneuropathy; R05.8 Other specified cough; N39.490 Overflow incontinence; I10 Essential (primary) hypertension; F41.1 Generalized anxiety disorder; G47.9 Sleep disorder, unspecified
CPT/HCPCS: 99215

== ENCOUNTER 2024-02-16 08:33 | Outpatient (AMB) | payer OTHER, SELFPAY ==
--- NOTE | 2024-02-16 08:33 | MHC.PC.OV ---
Intake Visit Reasons: 2 Wk F/u [phone] Allergies orange Allergy (Unknown, Verified 02/16/24 09:25) HIVES Medication List - Last Reconciled 02/16/24 by Evan Bates MD [Adult diapers As directed] amlodipine 10 mg PO .Q AM ascorbic acid (vitamin C) 250 mg PO BID blood-glucose meter ([employer] Autocode Blood Glucose Monitoring System) As directed bupropion HCl SR 150 mg PO BEDTIME calcium carbonate 500 mg PO ONCE 90 days cholecalciferol (vitamin D3) 25 mcg PO DAILY citalopram 40 mg PO DAILY cyanocobalamin (vitamin B-12) (Vitamin B-12) 1,000 mcg PO DAILY dulaglutide 0.75 mg (0.25 mL) subcut QWEEK 90 days ferrous sulfate 325 mg PO DAILY 90 days folic acid 1 mg PO DAILY furosemide 20 mg PO DAILY 90 days insulin glargine (Lantus Solostar U-100 Insulin) 32 units (0.32 mL) subcut QPM 90 days lancets ([employer] Lancets) Test blood sugar 3 times per day metoprolol succinate ER 100 mg PO DAILY mirtazapine 30 mg PO BEDTIME pen needle, diabetic As directed Prodigy No Coding (blood sugar diagnostic) Test blood sugar 3 times per day NS [Walker with wheels As directed] Tobacco use date assessed: 01/31/24 Dental Screening Dental Screen Date: 01/31/24 HPI 2 Wk F/u [phone] HPI Details This is a tele medicine follow-up appointment on Diabetes Patient was started on Trulicity 0.75 mg 2 weeks ago She has stop taking the insulin, fasting blood sugar this morning is 195 Last time she ate was last night and it is 10:00 now I am increasing the dose of Trulicity to 1.5 mg She has received orders for blood test She will submit dose to visiting nurse today so the blood can be drawn. We will make a follow-up appointment again in 4 weeks to go over the labs [facility] Medical History Difficulty sleeping Anxiety, generalized Diabetes 1.5, managed as type 2 Hypertension, essential Surgical History No pertinent past surgical history Family History Other Mental health disorder Social History Housing: Other (mobile home) Alcohol intake: never Patient Tobacco Use Status: Former Tobacco user Quit Date: quit 8 years ago e-Cigarette/Vaping Use: Never Used Current occupational status: disabled Cognitive needs: No Hearing needs: No Vision needs: No Questionnaire Thrive Questionnaire Date Thrive assessed: 04/15/21 Review of Systems Const Denies chills and Denies fever(s) ENT Denies epistaxis and Denies nasal discharge Card Denies chest pain Resp Denies chest congestion, Denies cough and Denies hemoptysis GI Denies diarrhea and Denies nausea Skin/Breast Denies rash Neuro Reports no additional complaints Psych Reports no additional complaints Endo Reports no additional complaints Physical exam (Primary Care) Tobacco/Smoking Status: Tobacco use Status Tobacco use date assessed 01/31/24 02/16/24 08:33 Patient Tobacco Use Status Former Tobacco user 02/16/24 08:33 e-Cigarette/Vaping Use Never Used 02/16/24 08:33 Thrive Assessment: Date of Thrive Assessment Date Thrive assessed 04/15/21 02/16/24 08:33 Telehealth Telehealth Location of provider rendering services: practice address Location of patient: address on file Patient Identification confirmed using: Name, : Yes Telehealth method: video (attempted) Patient verbally consented to treatment: Yes Patient verbally consented to billing insurance company: Yes Patient informed of any privacy concerns related to visit: Yes Assessment and Plan Assessment & Plan (1) Type 2 diabetes mellitus with other diabetic kidney complication: Code(s): E11.29 - Type 2 diabetes mellitus with other diabetic kidney complication Plan This is a tele medicine follow-up appointment on Diabetes Patient was started on Trulicity 0.75 mg 2 weeks ago She has stop taking the insulin, fasting blood sugar this morning is 195 Last time she ate was last night and it is 10:00 now I am increasing the dose of Trulicity to 1.5 mg She has received orders for blood test She will submit dose to visiting nurse today so the blood can be drawn. We will make a follow-up appointment again in 4 weeks to go over the labs Medications: Changed From dulaglutide (Trulicity) 0.75 mg (0.5 mL) subcut QWEEK 90 days 6.5 mL 0RF E11.29 - Type 2 diabetes mellitus with other diabetic kidney complication, E11.9 - Type 2 diabetes mellitus without complications, Z79.4 - longterm (current) use of insulin To dulaglutide 0.75 mg (0.25 mL) subcut QWEEK 90 days 3.25 mL 0RF E11.29 - Type 2 diabetes mellitus with other diabetic kidney complication, E11.9 - Type 2 diabetes mellitus without complications, Z79.4 - terminal make up operator (current) use of insulin Coding Level of Care Code Tele Est Pt Level 3 (91790) Diagnoses Type 2 diabetes mellitus with other diabetic kidney complication E11.29
== END 2024-02-16 10:26 | disposition home or self-care (01) ==
LOC: HO.HMGC 08:33
PROVIDERS: PCP Internal Medicine; Visit Provider Internal Medicine
DX: E11.29 Type 2 diabetes mellitus with other diabetic kidney complication (principal)
CPT/HCPCS: 99213

== ENCOUNTER 2024-02-23 12:09 | Outpatient (REF) | payer OTHER, SELFPAY ==
[2024-02-23 13:30] LABS: MANUAL DIFF FLAG NO
[2024-02-23 13:47] LABS: Basophils Absolute Auto 0.1 X10*3/uL (0.0-0.2); Basophils Percent Auto 0.6 % (0-2); Eosinophils Absolute Auto 0.1 X10*3/uL (0.0-0.4); Eosinophils Percent Auto 1.6 % (0-4); Hematocrit 36.9 % (37.0-47.0); Hemoglobin 12.1 g/dl (12.0-16.0); Imm Gran Abs Auto 0.04 X10*3/uL (0.00-0.03); Imm Gran Pct Auto 0.5 % (0.0-0.4); Lymphocytes Absolute Auto 1.4 X10*3/uL (1.2-4.9); Lymphocytes Percent Auto 16.9 % (20-40); Mean Corpuscular HGB Conc 32.8 g/dl (31.0-35.0); Mean Corpuscular Hemoglobin 30.3 pg (27.0-33.0); Mean Corpuscular Volume 92.3 fL (80.0-98.0); Mean Platelet Volume 10.2 fL (9.4-12.3); Monocytes Absolute Auto 0.5 X10*3/uL (0.1-1.2); Monocytes Percent Auto 6.6 % (2-11); Neutrophils Percent Auto 73.8 % (45-73); Platelet Count 220 X10*3/uL (160-400); Red Cell Distribution Width 13.3 % (11.0-16.0); White Blood Count 8.1 X10*3/uL (4.8-10.8)
[2024-02-23 14:42] LABS: Estimated Average Glucose 114 mg/dL; Hemoglobin A1c % 5.6 % (<6.0)
[2024-02-23 14:42] LABS: Alanine Aminotransferase 10 U/L (0-31); Alkaline Phosphatase 102 U/L (39-117); Anion Gap 14 (12-20); Aspartate Amino Transferase 11 U/L (5-31); Bilirubin Total 0.5 mg/dL (0.0-1.0); Blood Urea Nitrogen 23 mg/dL (9-16); Calcium 9.6 mg/dL (8.4-10.2); Carbon Dioxide 26 mmol/L (22-29); Chloride 107 mmol/L (96-108); Estimated Glomerular Filt Rate 40; Ferritin 314 ng/mL (10-250); Glucose Random 188 mg/dL (60-115); Magnesium 2.4 mg/dL (1.6-2.6); Potassium 4.3 mmol/L (3.3-5.1); Sodium 143 mmol/L (135-145); TSH reflex Free T4 3.35 uIU/mL (0.32-4.0); Total Protein 8.2 g/dL (6.5-8.0)
[2024-02-23 14:59] LABS: Folate 15.4 ng/mL (> or = 4.0)
[2024-02-23 21:04] LABS: Vitamin B12 1629 pg/mL (200-900)
[2024-02-25 11:34] LABS: LDL Cholesterol Direct 141 mg/dL (<100)
[2024-02-29 13:53] LABS: Vitamin D 25-OH, D2 <4 ng/mL; Vitamin D 25-OH, D3 38 ng/mL; Vitamin D 25-OH, Total 38 ng/mL (30-100)
== END 2024-02-23 12:10 | disposition home or self-care (01) ==
LOC: HO.HMGCLDS 12:09
PROVIDERS: PCP Internal Medicine; Visit Provider Internal Medicine
DX: I12.9 Hypertensive chronic kidney disease with stage 1 through stage 4 chronic kidney disease, or unspecified chronic kidney disease (principal); E11.22 Type 2 diabetes mellitus with diabetic chronic kidney disease; N18.32 Chronic kidney disease, stage 3b; E11.29 Type 2 diabetes mellitus with other diabetic kidney complication; F33.9 Major depressive disorder, recurrent, unspecified; N39.490 Overflow incontinence; G82.50 Quadriplegia, unspecified; F41.1 Generalized anxiety disorder; G47.9 Sleep disorder, unspecified; E66.01 Morbid (severe) obesity due to excess calories; Z79.4 Long term (current) use of insulin
CPT/HCPCS: 36415; 80053; 82306; 82607; 82728; 82746; 83036; 83721; 83735; 84443; 85025

== ENCOUNTER 2024-08-01 11:41 | Outpatient (AMB) | payer OTHER, SELFPAY ==
[2024-08-01 11:42] VITALS: BP 138/78; PULSE 70; O2SAT 98
--- NOTE | 2024-08-01 11:42 | MHC.PC.OV ---
Vital Signs 08/01/24 11:42 Height 5 ft 3 in BMI Reason not done Patient refused/unable BP 138/78 Blood Pressure Location Rt brachial Position Sitting Pulse 70 Pulse Source Pulse Oximeter Pulse Oximetry (%) 98 Oxygen Delivery Method Room Air Intake Visit Reasons: 4MoFollowUp Allergies orange Allergy (Unknown, Verified 08/01/24 11:43) HIVES Medication List - Last Reconciled 08/01/24 by Evan Bates MD [Adult diapers As directed] amlodipine 10 mg PO .Q AM ascorbic acid (vitamin C) 250 mg PO BID blood-glucose meter (FreeStyle Lite Meter kit) As directed bupropion HCl SR 150 mg PO BEDTIME calcium carbonate 500 mg PO ONCE 90 days cholecalciferol (vitamin D3) 25 mcg PO DAILY citalopram 40 mg PO DAILY dulaglutide 1.5 mg (0.5 mL) subcut QWEEK 90 days folic acid 1 mg PO DAILY FreeStyle Lite Strips (blood sugar diagnostic) Test blood sugar three times per day NS furosemide 20 mg PO DAILY 90 days insulin glargine (Lantus Solostar U-100 Insulin) 32 units (0.32 mL) subcut QPM 90 days lancets (FreeStyle Lancets) Test blood sugar three times per day metoprolol succinate ER 100 mg PO DAILY mirtazapine 30 mg PO BEDTIME pen needle, diabetic Use to inject insulin once a day [Walker with wheels As directed] wheelchair Size Large Tobacco use date assessed: 08/01/24 Dental Screening Dental Screen Date: 08/01/24 Did you have a dental visit in the last 12 months?: Yes Did you have a dental problem in the last 6 months where you did not have access to dental care?: No Was dental information given to patient?: Patient has dentist HPI 4MoFollowUp HPI Details Patient is 63-year-old female with a history of hypertension, depression, vitamin-D deficiency, sleeping difficulty, recurrent leg swelling, diabetes mellitus history of 2 toe amputations secondary to osteomyelitis in the past, developed osteomyelitis vertebral with cold compression ended up having laminectomy with fusion T10 and T12 in 2021 Patient ended up quadriplegic after that, she was in rehab for a while and then was finally discharged home January of 2023 She went through extensive physical therapy and is still going through Patient has gained some movement of her lower and upper extremity and is now able to feed herself, she is gradually improving She continued to be nonambulatory she also had C3-6 laminectomy as well Currently patient have physical therapist come home daily, on examination she has more strength in her right hand than left. Feet examination showed some toes missing, no signs of infection 1+ pitting edema. She has developed traumatic hematoma left lower extremity anterior aspect about 4 in above ankle Patient says that it appeared this past weekend when she was trying to stand up with help of support and accidentally hit her leg Skin is intact Patient has no fever chills she is eating no nausea vomiting , she is unable to use bathroom, so she is wearing diapers. Or both urine and bowel She is requesting bad pads we will start the process. She has [employer] MARKUP CLERK come over in the morning to get her out of the bed and clean her And then come at night to get her ready for bed Medication list reviewed Lab orders placed to be done today Patient was able to come here on a wheelchair today with the help of transportation She will return in 3 months for follow-up again [facility] Medical History Difficulty sleeping Anxiety, generalized Diabetes 1.5, managed as type 2 Hypertension, essential Surgical History No pertinent past surgical history Family History Other Mental health disorder Social History Housing: Other (mobile home) Alcohol intake: never Patient Tobacco Use Status: Former Tobacco user e-Cigarette/Vaping Use: Never Used service: No Current occupational status: disabled Cognitive needs: No Hearing needs: No Vision needs: No Questionnaire PHQ-9 Over the last 2 weeks, how often have you been bothered by any of the following problems? 1. Little interest or pleasure in doing things: not at all 2. Feeling down, depressed, or hopeless: not at all 3. Trouble falling or staying asleep, or sleeping too much: not at all 4. Feeling tired or having little energy: not at all 5. Poor appetite or overeating: not at all 6. Feeling bad about yourself - or that you are a failure or have let yourself or your family down: not at all 7. Trouble concentrating on things, such as reading the newspaper or watching television: not at all 8. Moving or speaking so slowly that other people could have noticed. Or the opposite - being so fidgety or restless that you have been moving around a lot more than usual: not at all 9. Thoughts that you would be better off or of hurting yourself in some way: not at all Total score: 0 Depression Screening Interpretation: Negative Depression Screening Done: Yes 29168 - PHQ-9 Billing: Yes Source: Developed by Drs. Xavier Neal, Brianne Flores, Fran Cifuentes and colleagues, with an educational sepideh from [employer]. Thrive Questionnaire Date Thrive assessed: 08/01/24 I am a: Patient What is your living situation today?: I have a steady place to live Within the past 12 months, did the food you bought not last and you didn't have the money to get more?: I choose not to answer this question Within the past 12 months, did you worry whether your food would run out before you got money to buy more?: I choose not to answer this question Do you have trouble paying for medicines?: I choose not to answer this question Do you have trouble getting transportation to medical appointments?: I choose not to answer this question Do you have trouble paying your heating and electricity bill?: I choose not to answer this question Do you have trouble taking care of your child, family member or friend?: I choose not to answer this question Do you have trouble with day-to-day activities such as bathing, preparing meals, shopping, managing finances, etc.?: I choose not to answer this question Are you interested in more education?: I choose not to answer this question Please select the resources that you would like help with: None Currently or been in a relationship where the following occur: I choose not to answer THRIVE Score: 0 AUDIT C Alcohol Use Questionnaire (AUDIT-C) 1. How often do you have a drink containing alcohol?: Never 3. How often do you have six or more drinks on one occasion?: Never Total Score: 0 Score Reviewed/Action Taken: Yes KRISTINA-7 AMB Questionnaire KRISTINA-7 Date KRISTINA - 7 assessed: 08/01/24 Feeling nervous, anxious, or on edge: 0 = Not at all Not being able to stop or control worryin = Not at all Worrying too much about different things: 0 = Not at all Trouble relaxin = Not at all Being so restless that it is hard to sit still: 0 = Not at all Becoming easily annoyed or irritable: 0 = Not at all Feeling afraid as if something awful might happen: 0 = Not at all Total KRISTINA-7 score (0-4 normal; 5-9 mild; 10-14 moderate; 15-21 severe): 0 Source: Developed by Drs. Xavier Neal, Brianne Flores, Farn Cifuentes and colleagues, with an educational sepideh from [employer]. KRISTINA-7 Assessment Billing KRISTINA-7 Assessment Tool: KRISTINA-7 Assessment 74500 Review of Systems Const Denies chills and Denies fever(s) ENT Denies epistaxis and Denies nasal discharge Card Denies chest pain Resp Denies chest congestion, Denies cough and Denies hemoptysis GI Denies nausea Skin/Breast Denies rash Neuro Reports no additional complaints Psych Reports no additional complaints Endo Reports no additional complaints Physical exam (Primary Care) Vital Signs: Last Vital Signs Pulse 70 08/01/24 11:42 BP 138/78 08/01/24 11:42 Pulse Ox 98 08/01/24 11:42 Oxygen Delivery Method Room Air 08/01/24 11:42 Tobacco/Smoking Status: Tobacco use Status Tobacco use date assessed 08/01/24 08/01/24 11:45 Patient Tobacco Use Status Former Tobacco user 08/01/24 11:45 e-Cigarette/Vaping Use Never Used 08/01/24 11:45 PHQ-9: PHQ-9 Score PHQ-9: Total score 0 08/01/24 12:07 Depression Screening Interpretation: Negative Thrive Assessment: Date of Thrive Assessment Date Thrive assessed 08/01/24 08/01/24 11:45 Currently or been in a relationship where the following occur: I choose not to answer Const Other: Obese female sitting in wheelchair in no acute distress General: cooperative, comfortable and no acute distress Orientation/consciousness: patient oriented x3 HENMT Head: Yes normocephalic Eyes General: appearance normal, both eyes and all related structures Resp Effort & Inspection: normal respiratory effort, no cough and no stridor Cardio Rhythm: regular rhythm Heart sounds: S1 normal heart sound present and S2 normal heart sound present Skin General skin exam: turgor normal Full body images: 1. Hematoma superficial, size of plum Neuro General: patient oriented x3 and tone normal Office Procedures Flu Questionnaire Does the patient have a severe egg allergy?: No Does the patient have severe life threatening allergies?: No Does the patient have a fever or illness today?: No Has the patient ever had Guillain-[place] Syndrome?: No Has the patient ever had any past reaction to a flu shot?: No Immunizations Fluarix Triv 6519-3335 (PF) 45 mcg (15 mcg x 3)/0.5 mL IM syringe Performing Provider: Evan Bates MD Performing Location: [facility] Administered by: Curtis Oropeza CMA on 08/01/24 12:06 Dose Route Admin Location Dispensed Lot Number Expiration Date [facility] Vehicle Safety Inspector 0.5 mL IM Left Deltoid 0.5 mL [id number] 04/29/25 [id number] [employer] VIS Given Date VIS Provided VIS Publication Date 08/01/24 Single Vaccine 21 Eligibility Eligibility Date Funding Source Not [facility] Eligible 08/01/24 Private Coding Level of Care Code Est Pt Level 5 (01113) Complex EM visit Add On G2211 Diagnoses Traumatic hematoma of left lower leg, initial encounter S80.12XA Encounter type: initial encounter Insulin dependent type 2 diabetes mellitus E11.9; Z79.4 Hypertension, essential I10 Chronic kidney disease, stage 3b N18.32 Anxiety, generalized F41.1 Diabetic polyneuropathy associated with type 2 diabetes mellitus E11.42 Diabetes mellitus complication detail: diabetic polyneuropathy Diabetes mellitus type: type 2 Difficulty sleeping G47.9 Morbid obesity due to excess calories E66.01 Recurrent major depressive disorder, in partial remission F33.41 Active/Remission status: in partial remission Risk for falls Z91.81 Incontinence overflow, urine N39.490 care home (current) use of insulin Z79.4 Elevated ferritin R79.89 Quadriplegia G82.50 Additional Codes KRISTINA-7 Assessment Billing - KRISTINA-7 Assessment Tool: KRISTINA-7 Assessment 88129 ([id number]) Assessment & Plan Assessment & Plan (1) Traumatic hematoma of left lower leg: Code(s): S80.12XA - Contusion of left lower leg, initial encounter Category: Medical Qualifiers: Encounter type: initial encounter Qualified Code(s): S80.12XA - Contusion of left lower leg, initial encounter (2) Insulin dependent type 2 diabetes mellitus: Code(s): E11.9 - Type 2 diabetes mellitus without complications; Z79.4 - manager intermediate (current) use of insulin Category: Medical (3) Hypertension, essential: Code(s): I10 - Essential (primary) hypertension Category: Medical (4) Chronic kidney disease, stage 3b: Code(s): N18.32 - Chronic kidney disease, stage 3b Category: Medical (5) Anxiety, generalized: Code(s): F41.1 - Generalized anxiety disorder Category: Medical (6) Diabetic neuropathy: Code(s): E11.40 - Type 2 diabetes mellitus with diabetic neuropathy, unspecified Category: Medical Qualifiers: Diabetes mellitus complication detail: diabetic polyneuropathy Diabetes mellitus type: type 2 Qualified Code(s): E11.42 - Type 2 diabetes mellitus with diabetic polyneuropathy (7) Difficulty sleeping: Code(s): G47.9 - Sleep disorder, unspecified Category: Medical (8) Morbid obesity due to excess calories: Code(s): E66.01 - Morbid (severe) obesity due to excess calories Category: Medical (9) Major depression, recurrent: Code(s): F33.9 - Major depressive disorder, recurrent, unspecified Category: Medical Qualifiers: Active/Remission status: in partial remission Qualified Code(s): F33.41 - Major depressive disorder, recurrent, in partial remission (10) Risk for falls: Code(s): Z91.81 - History of falling Category: Medical (11) Incontinence overflow, urine: Code(s): N39.490 - Overflow incontinence Category: Medical (12) care home (current) use of insulin: Code(s): Z79.4 - care home (current) use of insulin Category: Medical (13) Elevated ferritin: Code(s): R79.89 - Other specified abnormal findings of blood chemistry Category: Medical (14) Quadriplegia: Code(s): G82.50 - Quadriplegia, unspecified Category: Medical Plan Patient is 63-year-old female with a history of hypertension, depression, vitamin-D deficiency, sleeping difficulty, recurrent leg swelling, diabetes mellitus history of 2 toe amputations secondary to osteomyelitis in the past, developed osteomyelitis vertebral with cold compression ended up having laminectomy with fusion T10 and T12 in 2021 Patient ended up quadriplegic after that, she was in rehab for a while and then was finally discharged home January of 2023 She went through extensive physical therapy and is still going through Patient has gained some movement of her lower and upper extremity and is now able to feed herself, she is gradually improving She continued to be nonambulatory she also had C3-6 laminectomy as well Currently patient have physical therapist come home daily, on examination she has more strength in her right hand than left. Feet examination showed some toes missing, no signs of infection 1+ pitting edema. She has developed traumatic hematoma left lower extremity anterior aspect about 4 in above ankle Patient says that it appeared this past weekend when she was trying to stand up with help of support and accidentally hit her leg Skin is intact Patient has no fever chills she is eating no nausea vomiting , she is unable to use bathroom, so she is wearing diapers. Or both urine and bowel She is requesting bad pads we will start the process. She has [employer] MARKUP CLERK come over in the morning to get her out of the bed and clean her And then come at night to get her ready for bed Medication list reviewed Lab orders placed to be done today Patient was able to come here on a wheelchair today with the help of transportation She will return in 3 months for follow-up again Orders: Orders Microalbumin, Random (w Creat) Today E11.42 - Type 2 diabetes mellitus with diabetic polyneuropathy, E11.9 - Type 2 diabetes mellitus without complications, E66.01 - Morbid (severe) obesity due to excess calories, F33.41 - Major depressive disorder, recurrent, in partial remission, F41.1 - Generalized anxiety disorder, G47.9 - Sleep disorder, unspecified, I10 - Essential (primary) hypertension, N18.32 - Chronic kidney disease, stage 3b, N39.490 - Overflow incontinence, R79.89 - Other specified abnormal findings of blood chemistry, Z79.4 - care home (current) use of insulin, Z91.81 - History of falling Complete Blood Count Auto Diff Today E11.42 - Type 2 diabetes mellitus with diabetic polyneuropathy, E11.9 - Type 2 diabetes mellitus without complications, E66.01 - Morbid (severe) obesity due to excess calories, F33.41 - Major depressive disorder, recurrent, in partial remission, F41.1 - Generalized anxiety disorder, G47.9 - Sleep disorder, unspecified, I10 - Essential (primary) hypertension, N18.32 - Chronic kidney disease, stage 3b, N39.490 - Overflow incontinence, R79.89 - Other specified abnormal findings of blood chemistry, Z79.4 - care home (current) use of insulin, Z91.81 - History of falling Comprehensive Met. Panel Today E11.42 - Type 2 diabetes mellitus with diabetic polyneuropathy, E11.9 - Type 2 diabetes mellitus without complications, E66.01 - Morbid (severe) obesity due to excess calories, F33.41 - Major depressive disorder, recurrent, in partial remission, F41.1 - Generalized anxiety disorder, G47.9 - Sleep disorder, unspecified, I10 - Essential (primary) hypertension, N18.32 - Chronic kidney disease, stage 3b, N39.490 - Overflow incontinence, R79.89 - Other specified abnormal findings of blood chemistry, Z79.4 - manager intermediate (current) use of insulin, Z91.81 - History of falling Vitamin D 25-OH (D2 and D3) Today E11.42 - Type 2 diabetes mellitus with diabetic polyneuropathy, E11.9 - Type 2 diabetes mellitus without complications, E66.01 - Morbid (severe) obesity due to excess calories, F33.41 - Major depressive disorder, recurrent, in partial remission, F41.1 - Generalized anxiety disorder, G47.9 - Sleep disorder, unspecified, I10 - Essential (primary) hypertension, N18.32 - Chronic kidney disease, stage 3b, N39.490 - Overflow incontinence, R79.89 - Other specified abnormal findings of blood chemistry, Z79.4 - manager intermediate (current) use of insulin, Z91.81 - History of falling Vitamin B12 Today E11.42 - Type 2 diabetes mellitus with diabetic polyneuropathy, E11.9 - Type 2 diabetes mellitus without complications, E66.01 - Morbid (severe) obesity due to excess calories, F33.41 - Major depressive disorder, recurrent, in partial remission, F41.1 - Generalized anxiety disorder, G47.9 - Sleep disorder, unspecified, I10 - Essential (primary) hypertension, N18.32 - Chronic kidney disease, stage 3b, N39.490 - Overflow incontinence, R79.89 - Other specified abnormal findings of blood chemistry, Z79.4 - manager intermediate (current) use of insulin, Z91.81 - History of falling UA CC w/rflx Micro + Cult Today E11.42 - Type 2 diabetes mellitus with diabetic polyneuropathy, E11.9 - Type 2 diabetes mellitus without complications, E66.01 - Morbid (severe) obesity due to excess calories, F33.41 - Major depressive disorder, recurrent, in partial remission, F41.1 - Generalized anxiety disorder, G47.9 - Sleep disorder, unspecified, I10 - Essential (primary) hypertension, N18.32 - Chronic kidney disease, stage 3b, N39.490 - Overflow incontinence, R79.89 - Other specified abnormal findings of blood chemistry, Z79.4 - care home (current) use of insulin, Z91.81 - History of falling Ferritin Today E11.42 - Type 2 diabetes mellitus with diabetic polyneuropathy, E11.9 - Type 2 diabetes mellitus without complications, E66.01 - Morbid (severe) obesity due to excess calories, F33.41 - Major depressive disorder, recurrent, in partial remission, F41.1 - Generalized anxiety disorder, G47.9 - Sleep disorder, unspecified, I10 - Essential (primary) hypertension, N18.32 - Chronic kidney disease, stage 3b, N39.490 - Overflow incontinence, R79.89 - Other specified abnormal findings of blood chemistry, Z79.4 - manager intermediate (current) use of insulin, Z91.81 - History of falling Hemoglobin A1c Today E11.42 - Type 2 diabetes mellitus with diabetic polyneuropathy, E11.9 - Type 2 diabetes mellitus without complications, E66.01 - Morbid (severe) obesity due to excess calories, F33.41 - Major depressive disorder, recurrent, in partial remission, F41.1 - Generalized anxiety disorder, G47.9 - Sleep disorder, unspecified, I10 - Essential (primary) hypertension, N18.32 - Chronic kidney disease, stage 3b, N39.490 - Overflow incontinence, R79.89 - Other specified abnormal findings of blood chemistry, Z79.4 - care home (current) use of insulin, Z91.81 - History of falling LDL Cholesterol Direct Today E11.42 - Type 2 diabetes mellitus with diabetic polyneuropathy, E11.9 - Type 2 diabetes mellitus without complications, E66.01 - Morbid (severe) obesity due to excess calories, F33.41 - Major depressive disorder, recurrent, in partial remission, F41.1 - Generalized anxiety disorder, G47.9 - Sleep disorder, unspecified, I10 - Essential (primary) hypertension, N18.32 - Chronic kidney disease, stage 3b, N39.490 - Overflow incontinence, R79.89 - Other specified abnormal findings of blood chemistry, Z79.4 - care home (current) use of insulin, Z91.81 - History of falling TSH reflex Free T4 Today E11.42 - Type 2 diabetes mellitus with diabetic polyneuropathy, E11.9 - Type 2 diabetes mellitus without complications, E66.01 - Morbid (severe) obesity due to excess calories, F33.41 - Major depressive disorder, recurrent, in partial remission, F41.1 - Generalized anxiety disorder, G47.9 - Sleep disorder, unspecified, I10 - Essential (primary) hypertension, N18.32 - Chronic kidney disease, stage 3b, N39.490 - Overflow incontinence, R79.89 - Other specified abnormal findings of blood chemistry, Z79.4 - manager intermediate (current) use of insulin, Z91.81 - History of falling Influenza [id number] Immunization Today Z23 - Encounter for immunization Medications: New [Bed pads] As directed 1 ea 0RF G82.50 - Quadriplegia, unspecified, N39.490 - Overflow incontinence
== END 2024-08-01 12:38 | disposition home or self-care (01) ==
PROVIDERS: PCP Internal Medicine; Visit Provider Internal Medicine
DX: I12.9 Hypertensive chronic kidney disease with stage 1 through stage 4 chronic kidney disease, or unspecified chronic kidney disease (principal); E11.22 Type 2 diabetes mellitus with diabetic chronic kidney disease; Z79.4 Long term (current) use of insulin; N18.32 Chronic kidney disease, stage 3b; E11.42 Type 2 diabetes mellitus with diabetic polyneuropathy; F33.41 Major depressive disorder, recurrent, in partial remission; G82.50 Quadriplegia, unspecified; S80.12XA Contusion of left lower leg, initial encounter; F41.1 Generalized anxiety disorder; G47.9 Sleep disorder, unspecified; Z23 Encounter for immunization; Z91.81 History of falling

== ENCOUNTER → 2024-08-01 11:41 | Outpatient (BNVA) | payer OTHER, SELFPAY | PROVIDERS: PCP Internal Medicine; Visit Provider Internal Medicine ==

== ENCOUNTER 2024-08-01 12:12 | Outpatient (REF) | payer OTHER, SELFPAY ==
[2024-08-01 16:54] LABS: Hematocrit 38.5 % (37.0-47.0); Hemoglobin 13.2 g/dl (12.0-16.0); Mean Corpuscular HGB Conc 34.3 g/dl (31.0-35.0); Mean Corpuscular Hemoglobin 32.4 pg (27.0-33.0); Mean Corpuscular Volume 94.6 fL (80.0-98.0); Mean Platelet Volume 10.7 fL (9.4-12.3); PLT CLUMP 1; Red Blood Count 4.07 X10*6/uL (4.20-5.50); Red Cell Distribution Width 13.6 % (11.0-16.0)
[2024-08-01 16:58] LABS: Vitamin B12 1216 pg/mL (200-900)
[2024-08-01 17:13] LABS: Alanine Aminotransferase 17 U/L (0-31); Albumin Level 4.1 g/dL (3.5-5.0); Alkaline Phosphatase 119 U/L (39-117); Anion Gap 20 (12-20); Aspartate Amino Transferase 17 U/L (5-31); Bilirubin Total 0.4 mg/dL (0.0-1.0); Blood Urea Nitrogen 30 mg/dL (9-16); Calcium 9.6 mg/dL (8.4-10.2); Carbon Dioxide 19 mmol/L (22-29); Chloride 105 mmol/L (96-108); Estimated Glomerular Filt Rate 31; Ferritin 304 ng/mL (10-250); Glucose Random 271 mg/dL (60-115); Potassium 4.5 mmol/L (3.3-5.1); Sodium 139 mmol/L (135-145); TSH reflex Free T4 0.52 uIU/mL (0.32-4.0); Total Protein 8.2 g/dL (6.5-8.0)
[2024-08-01 18:47] LABS: SLIDE REVIEW MANUAL DIFF
[2024-08-01 18:50] LABS: Band Neutrophils Percent 2 % (3-5); Basophils Percent Manual 1 % (0-2); Eosinophils Percent Manual 3 % (0-4); Lymphocytes Percent Manual 11 % (20-40); Monocytes Percent Manual 6 % (2-11); Neutrophils Percent Manual 77 % (45-73)
[2024-08-01 18:51] LABS: Basophils Abs Manual 0.1 X10*3/uL (0.0-0.2); Eosinophils Absolute Manual 0.4 X10*3/uL (0.0-0.4); Lymphocytes Absolute Manual 1.4 X10*3/uL (1.2-4.9); Monocytes Absolute Manual 0.8 X10*3/uL (0.1-1.2); Neutrophils Absolute Manual 10.3 X10*3/uL (2.0-8.3); Platelet Count 228 X10*3/uL (160-400); Platelet Estimate NORMAL (NORMAL); Platelet Morphology Comment NORMAL; RBC Morphology NORMAL; White Blood Count 13.1 X10*3/uL (4.8-10.8)
[2024-08-02 07:54] LABS: Estimated Average Glucose 154 mg/dL; Hemoglobin A1C 180.5939 umol/L; Total Hemoglobin (HGBA1C) 3405.0883 umol/L
[2024-08-03 02:59] LABS: LDL Cholesterol Direct 154 mg/dL (<100)
[2024-08-08 14:08] LABS: Vitamin D 25-OH, D2 <4 ng/mL; Vitamin D 25-OH, D3 40 ng/mL; Vitamin D 25-OH, Total 40 ng/mL (30-100)
== END 2024-08-01 12:13 | disposition home or self-care (01) ==
LOC: HO.HMGCLDS 12:12
PROVIDERS: PCP Internal Medicine; Visit Provider Internal Medicine
DX: E11.22 Type 2 diabetes mellitus with diabetic chronic kidney disease (principal); I12.9 Hypertensive chronic kidney disease with stage 1 through stage 4 chronic kidney disease, or unspecified chronic kidney disease; N18.32 Chronic kidney disease, stage 3b; S80.12XA Contusion of left lower leg, initial encounter; F41.1 Generalized anxiety disorder; Z23 Encounter for immunization; E11.42 Type 2 diabetes mellitus with diabetic polyneuropathy; G47.9 Sleep disorder, unspecified; E66.01 Morbid (severe) obesity due to excess calories; F33.41 Major depressive disorder, recurrent, in partial remission; N39.490 Overflow incontinence; R79.89 Other specified abnormal findings of blood chemistry; G82.50 Quadriplegia, unspecified; Z91.81 History of falling; Z79.4 Long term (current) use of insulin; X58.XXXA Exposure to other specified factors, initial encounter; Y93.9 Activity, unspecified; Y92.9 Unspecified place or not applicable; Y99.9 Unspecified external cause status
CPT/HCPCS: 36415; 80053; 82306; 82607; 82728; 83036; 83721; 84443; 85007; 85025; 85027; 90471; 90656; 96127; 99212

== ENCOUNTER 2024-08-21 10:53 | Outpatient (REF) | payer OTHER, SELFPAY ==
[2024-08-21 13:11] LABS: MANUAL DIFF FLAG NO
[2024-08-21 13:33] LABS: Basophils Absolute Auto 0.1 X10*3/uL (0.0-0.2); Eosinophils Absolute Auto 0.3 X10*3/uL (0.0-0.4); Eosinophils Percent Auto 4.1 % (0-4); Hematocrit 38.3 % (37.0-47.0); Hemoglobin 12.7 g/dl (12.0-16.0); Imm Gran Abs Auto 0.07 X10*3/uL (0.00-0.03); Imm Gran Pct Auto 0.8 % (0.0-0.4); Lymphocytes Absolute Auto 1.5 X10*3/uL (1.2-4.9); Lymphocytes Percent Auto 17.8 % (20-40); Mean Corpuscular HGB Conc 33.2 g/dl (31.0-35.0); Mean Corpuscular Hemoglobin 31.8 pg (27.0-33.0); Mean Platelet Volume 10.3 fL (9.4-12.3); Monocytes Absolute Auto 0.4 X10*3/uL (0.1-1.2); Monocytes Percent Auto 4.7 % (2-11); Neutrophils Percent Auto 71.6 % (45-73); Platelet Count 251 X10*3/uL (160-400); Red Blood Count 3.99 X10*6/uL (4.20-5.50); Red Cell Distribution Width 13.6 % (11.0-16.0); White Blood Count 8.3 X10*3/uL (4.8-10.8)
[2024-08-21 13:38] LABS: Alanine Aminotransferase 15 U/L (0-31); Alkaline Phosphatase 99 U/L (39-117); Anion Gap 18 (12-20); Aspartate Amino Transferase 19 U/L (5-31); Bilirubin Total 0.4 mg/dL (0.0-1.0); Blood Urea Nitrogen 29 mg/dL (9-16); Calcium 9.8 mg/dL (8.4-10.2); Carbon Dioxide 25 mmol/L (22-29); Chloride 102 mmol/L (96-108); Estimated Glomerular Filt Rate 28; Glucose Random 300 mg/dL (60-115); Potassium 4.6 mmol/L (3.3-5.1); Sodium 140 mmol/L (135-145); Total Protein 7.7 g/dL (6.5-8.0)
== END 2024-08-21 10:54 | disposition home or self-care (01) ==
LOC: HO.HMGCLDS 10:53
PROVIDERS: PCP Internal Medicine; Visit Provider Internal Medicine
DX: F41.1 Generalized anxiety disorder (principal); G47.9 Sleep disorder, unspecified; E66.01 Morbid (severe) obesity due to excess calories; E11.42 Type 2 diabetes mellitus with diabetic polyneuropathy; Z91.81 History of falling; N39.490 Overflow incontinence; F33.41 Major depressive disorder, recurrent, in partial remission; R79.89 Other specified abnormal findings of blood chemistry; E11.22 Type 2 diabetes mellitus with diabetic chronic kidney disease; I12.9 Hypertensive chronic kidney disease with stage 1 through stage 4 chronic kidney disease, or unspecified chronic kidney disease; N18.32 Chronic kidney disease, stage 3b; Z79.4 Long term (current) use of insulin
CPT/HCPCS: 36415; 80053; 81256; 85025

== ENCOUNTER 2024-08-30 08:28 | Outpatient (AMB) | payer OTHER, SELFPAY ==
--- NOTE | 2024-08-30 08:30 | A.OFFPC_ITS ---
Intake Visit Reasons: [phone], lump on left [place] Allergies orange Allergy (Unknown, Verified 08/30/24 08:31) HIVES Medication List - Last Reconciled 08/30/24 by Evan Bates MD [Adult diapers As directed] amlodipine 10 mg PO .Q AM ascorbic acid (vitamin C) 250 mg PO BID blood-glucose meter (FreeStyle Lite Meter kit) As directed bupropion HCl SR 150 mg PO BEDTIME calcium carbonate 500 mg PO ONCE 90 days cholecalciferol (vitamin D3) 25 mcg PO DAILY citalopram 40 mg PO DAILY dulaglutide 1.5 mg (0.5 mL) subcut QWEEK 90 days folic acid 1 mg PO DAILY FreeStyle Lite Strips (blood sugar diagnostic) Test blood sugar three times per day NS furosemide 20 mg PO DAILY 90 days insulin glargine (Lantus Solostar U-100 Insulin) 32 units (0.32 mL) subcut QPM 90 days lancets (FreeStyle Lancets) Test blood sugar three times per day metoprolol succinate ER 100 mg PO DAILY mirtazapine 30 mg PO BEDTIME pen needle, diabetic Use to inject insulin once a day [Re-useable underpads As directed] [Walker with wheels As directed] wheelchair Size Large Tobacco use date assessed: 08/30/24 Dental Screening Dental Screen Date: 08/30/24 Did you have a dental visit in the last 12 months?: No Did you have a dental problem in the last 6 months where you did not have access to dental care?: No Was dental information given to patient?: No HPI lump on left [place] HPI Details Patient had developed hematoma left [place] area, that was evaluated early this month it seems like it has opened up and released blood on camera i couldnt see much as there is dried blood around her will clean it up with warm water and we will set up another meeting next week she has no discomfort at that site and I didnt appricated any swelling or redness [facility] Medical History Difficulty sleeping Anxiety, generalized Diabetes 1.5, managed as type 2 Hypertension, essential Surgical History No pertinent past surgical history Family History Other Mental health disorder Social History Housing: Other (mobile home) Alcohol intake: never Patient Tobacco Use Status: Former Tobacco user e-Cigarette/Vaping Use: Never Used service: No Current occupational status: disabled Cognitive needs: No Hearing needs: No Vision needs: No Questionnaire Thrive Questionnaire Date Thrive assessed: 08/01/24 AUDIT C Alcohol Use Questionnaire (AUDIT-C) 1. How often do you have a drink containing alcohol?: Never 3. How often do you have six or more drinks on one occasion?: Never Total Score: 0 Score Reviewed/Action Taken: Yes KRISTINA-7 AMB Questionnaire KRISTINA-7 Date KRISTINA - 7 assessed: 08/01/24 Source: Developed by Drs. Xavier Neal, Brianne Flores, Fran Cifuentes and colleagues, with an educational sepideh from [employer]. Review of Systems Const All systems reviewed & are unremarkable except as noted in HPI and below Physical exam (Primary Care) Tobacco/Smoking Status: Tobacco use Status Tobacco use date assessed 08/30/24 08/30/24 08:31 Patient Tobacco Use Status Former Tobacco user 08/30/24 08:31 e-Cigarette/Vaping Use Never Used 08/30/24 08:31 Thrive Assessment: Date of Thrive Assessment Date Thrive assessed 08/01/24 08/30/24 08:31 Telehealth Telehealth Telehealth Platform: [facility] Location of provider rendering services: practice address Location of patient: address on file Patient Identification confirmed using: Name, : Yes Telehealth method: video Patient verbally consented to treatment: Yes Patient verbally consented to billing insurance company: Yes Patient informed of any privacy concerns related to visit: Yes Minutes spent on Phone/Video with Pt.: 13 Coding Level of Care Code Tele Est Pt Level 3 (96217) Diagnoses Traumatic hematoma of left lower leg, initial encounter S80.12XA Encounter type: initial encounter Assessment & Plan Assessment & Plan (1) Traumatic hematoma of left lower leg: Code(s): S80.12XA - Contusion of left lower leg, initial encounter Category: Medical Qualifiers: Encounter type: initial encounter Qualified Code(s): S80.12XA - Contusion of left lower leg, initial encounter Plan Patient had developed hematoma left [place] area, that was evaluated early this month it seems like it has opened up and released blood on camera i couldnt see much as there is dried blood around her will clean it up with warm water and we will set up another meeting next week she has no discomfort at that site and I didnt appricated any swelling or redness
== END 2024-08-30 11:03 | disposition home or self-care (01) ==
LOC: HO.HMCC 08:28
PROVIDERS: PCP Internal Medicine; Visit Provider Internal Medicine
DX: S80.12XA Contusion of left lower leg, initial encounter (principal)

== ENCOUNTER → 2024-08-30 08:28 | Outpatient (BNVA) | payer OTHER, SELFPAY | PROVIDERS: PCP Internal Medicine; Visit Provider Internal Medicine ==

== ENCOUNTER 2024-09-06 08:40 | Outpatient (AMB) | payer OTHER, SELFPAY ==
--- NOTE | 2024-09-06 10:10 | A.OFFPC_ITS ---
Intake Visit Reasons: f/u left leg hematoma Allergies orange Allergy (Unknown, Verified 08/30/24 08:31) HIVES Medication List - Last Reconciled 09/07/24 by Evan Bates MD [Adult diapers As directed] amlodipine 10 mg PO .Q AM ascorbic acid (vitamin C) 250 mg PO BID blood-glucose meter (FreeStyle Lite Meter kit) As directed bupropion HCl SR 150 mg PO BEDTIME calcium carbonate 500 mg PO ONCE 90 days cholecalciferol (vitamin D3) 25 mcg PO DAILY citalopram 40 mg PO DAILY dulaglutide 1.5 mg (0.5 mL) subcut QWEEK 90 days folic acid 1 mg PO DAILY FreeStyle Lite Strips (blood sugar diagnostic) Test blood sugar three times per day NS furosemide 20 mg PO DAILY 90 days insulin glargine (Lantus Solostar U-100 Insulin) 32 units (0.32 mL) subcut QPM 90 days lancets (FreeStyle Lancets) Test blood sugar three times per day metoprolol succinate ER 100 mg PO DAILY mirtazapine 30 mg PO BEDTIME pen needle, diabetic (UltiCare Pen Needle) USE TO INJECT INSULIN ONCE A DAY. [Re-useable underpads As directed] [Walker with wheels As directed] wheelchair Size Large Tobacco use date assessed: 08/30/24 Dental Screening Dental Screen Date: 08/30/24 HPI f/u left leg hematoma HPI Details Follow-up lower leg hematoma Patient says that since last week her hematoma has reduced in size and is getting better She does not have any concern at this time REPLACED BY [facility] Medical History Difficulty sleeping Anxiety, generalized Diabetes 1.5, managed as type 2 Hypertension, essential Surgical History No pertinent past surgical history Family History Other Mental health disorder Social History Housing: Other (mobile home) Alcohol intake: never Patient Tobacco Use Status: Former Tobacco user e-Cigarette/Vaping Use: Never Used service: No Current occupational status: disabled Cognitive needs: No Hearing needs: No Vision needs: No Questionnaire Thrive Questionnaire Date Thrive assessed: 08/01/24 KRISTINA-7 AMB Questionnaire KRISTINA-7 Date KRISTINA - 7 assessed: 08/01/24 Source: Developed by Drs. Xavier Neal, Brianne Flores, Fran Cifuentes and colleagues, with an educational sepideh from [employer]. Review of Systems Const All systems reviewed & are unremarkable except as noted in HPI and below Physical exam (Primary Care) Tobacco/Smoking Status: Tobacco use Status Tobacco use date assessed 08/30/24 09/06/24 10:10 Patient Tobacco Use Status Former Tobacco user 09/06/24 10:10 e-Cigarette/Vaping Use Never Used 09/06/24 10:10 Thrive Assessment: Date of Thrive Assessment Date Thrive assessed 08/01/24 09/06/24 10:10 Telehealth Telehealth Telehealth Platform: [facility] Location of provider rendering services: practice address Location of patient: address on file Patient Identification confirmed using: Name, : Yes Telehealth method: voice only Patient verbally consented to treatment: Yes Patient verbally consented to billing insurance company: Yes Patient informed of any privacy concerns related to visit: Yes Minutes spent on Phone/Video with Pt.: 12 Coding Level of Care Code Tele Est Pt Level 3 (43361) Diagnoses Traumatic hematoma of left lower leg, initial encounter S80.12XA Encounter type: initial encounter Assessment & Plan Assessment & Plan (1) Traumatic hematoma of left lower leg: Code(s): S80.12XA - Contusion of left lower leg, initial encounter Category: Medical Qualifiers: Encounter type: initial encounter Qualified Code(s): S80.12XA - Contusion of left lower leg, initial encounter Plan Follow-up lower leg hematoma Patient says that since last week her hematoma has reduced in size and is getting better She does not have any concern at this time
== END 2024-09-06 12:08 | disposition home or self-care (01) ==
LOC: HO.HMCC 08:40
PROVIDERS: PCP Internal Medicine; Visit Provider Internal Medicine
DX: S80.12XA Contusion of left lower leg, initial encounter (principal)

== ENCOUNTER → 2024-12-06 08:20 | Outpatient (BNVA) | payer OTHER, SELFPAY | PROVIDERS: PCP Internal Medicine; Visit Provider Internal Medicine ==

== ENCOUNTER 2025-03-07 08:40 | Outpatient (AMB) | payer OTHER, SELFPAY ==
--- NOTE | 2025-03-07 08:43 | A.OFFPC_ITS ---
Intake Visit Reasons: 3M F/U Allergies orange Allergy (Unknown, Verified 03/07/25 08:44) HIVES Medication List - Last Reconciled 03/07/25 by Evan Bates MD [3xlg adult pull-up As directed] [Adult diapers As directed] amlodipine 10 mg PO .Q AM ascorbic acid (vitamin C) 250 mg PO BID blood-glucose meter (FreeStyle Lite Meter kit) As directed [body-facial wipes Use As directed] bupropion HCl SR 150 mg PO BEDTIME calcium carbonate 500 mg PO ONCE 90 days cholecalciferol (vitamin D3) 25 mcg PO DAILY citalopram 40 mg PO DAILY [comfort bed pads(washable) As directed] dulaglutide 3 mg (0.5 mL) subcut QWEEK 90 days folic acid 1 mg PO DAILY FreeStyle Lite Strips (blood sugar diagnostic) Test blood sugar three times per day NS furosemide 20 mg PO DAILY 90 days incontinence pad, liner, disp (Dry Comfort pads) As directed insulin glargine (Lantus Solostar U-100 Insulin) 32 units (0.32 mL) subcut QPM 90 days lancets (FreeStyle Lancets) Test blood sugar three times per day [latex-free gloves Use As directed. ] metoprolol succinate ER 100 mg PO DAILY mirtazapine 30 mg PO BEDTIME pen needle, diabetic (UltiCare Pen Needle) USE TO INJECT INSULIN ONCE A DAY. [periwick Use As directed at night] [Re-useable underpads As directed] [Walker with wheels As directed] wheelchair Size Large Tobacco use date assessed: 03/07/25 Dental Screening Dental Screen Date: 03/07/25 Did you have a dental problem in the last 6 months where you did not have access to dental care?: No HPI 3M F/U HPI Details History - The patient is a 64-year-old female pr esenting for a request for blood test and management of multiple medical conditions. - Last blood test was conducted in Octob er of the previous year. A new blood test is requested and described as very important. - Blood pressure readings have been cons istently normal, specified as 120/84 mmHg, with management including medications such as Amlodipine and Metoprolol. Patient has nurse support once a week for monitoring. - Diabetes is managed with Trulicity 3 m g and long-acting insulin, 32 units. Previous blood sugar readings were not recalled during the visit. - Depression is being managed with Bupro pion 150 mg and Citalopram 40 mg. The patient takes Mirtazapine at night for sleep. - The patient reports developing flaky s kin around the ears. Using Cecile moisturizer, but not experiencing pain or significant discomfort. No hydrocodone available at home. Problem List - Diabetes Mellitus, type not specified, treated with insulin and Trulicity - Hypertension - Depression - Flaky skin of ears - Urine incontinence Patient Instructions - Obtain blood test as soon as possible; no fasting required. - Call pharmacy for medication refill re quests as needed. - Use prescribed hydrocortisone cream f or flaky skin around ears, applying it with a fingertip on the surface, not inside the ear. - Continue current medication regimen in cluding Amlodipine, Bupropion, Vitamin D, Citalopram, Folic Acid, Furosemide, Metoprolol, and insulin under current dosages. - Follow up in 3 months. Review of Systems - Neurological: No headaches no dizziness - Ear nose throat: No sore throat no hearing difficulty no ear pain - Cardiovascular: No syncope, no chest pain, no palpitations - Gastrointestinal: No nausea vomiting or diarrhea - Endocrine: No polyuria polydipsia no heat intolerance - Genitourinary: No dysuria , no blood in urine [facility] Medical History Difficulty sleeping Anxiety, generalized Diabetes 1.5, managed as type 2 Hypertension, essential Surgical History No pertinent past surgical history Family History Other Mental health disorder Social History Housing: Other (mobile home) Alcohol intake: never Patient Tobacco Use Status: Former Tobacco user e-Cigarette/Vaping Use: Never Used service: No Current occupational status: disabled Cognitive needs: No Hearing needs: No Vision needs: No Questionnaire PHQ-9 Over the last 2 weeks, how often have you been bothered by any of the following problems? 1. Little interest or pleasure in doing things: not at all 2. Feeling down, depressed, or hopeless: not at all 3. Trouble falling or staying asleep, or sleeping too much: not at all 4. Feeling tired or having little energy: not at all 5. Poor appetite or overeating: not at all 6. Feeling bad about yourself - or that you are a failure or have let yourself or your family down: not at all 7. Trouble concentrating on things, such as reading the newspaper or watching television: not at all 8. Moving or speaking so slowly that other people could have noticed. Or the opposite - being so fidgety or restless that you have been moving around a lot more than usual: not at all 9. Thoughts that you would be better off or of hurting yourself in some way: not at all Total score: 0 Depression Screening Interpretation: Negative Depression Screening Done: Yes 09652 - PHQ-9 Billing: Yes Source: Developed by Drs. Xavier Neal, Brianne Flores, Fran Cifuentes and colleagues, with an educational sepideh from [employer]. Thrive Questionnaire Date Thrive assessed: 03/07/25 I am a: Patient What is your living situation today?: I have a steady place to live Within the past 12 months, did the food you bought not last and you didn't have the money to get more?: Never true Within the past 12 months, did you worry whether your food would run out before you got money to buy more?: Never true Do you have trouble paying for medicines?: No Do you have trouble getting transportation to medical appointments?: No Do you have trouble paying your heating and electricity bill?: No Do you have trouble taking care of your child, family member or friend?: No Do you have trouble with day-to-day activities such as bathing, preparing meals, shopping, managing finances, etc.?: No Are you currently unemployed and looking for a job?: No Are you interested in more education?: No Please select the resources that you would like help with: None Currently or been in a relationship where the following occur: No concerns reported THRIVE Score: 0 AUDIT C Alcohol Use Questionnaire (AUDIT-C) 1. How often do you have a drink containing alcohol?: Monthly or less 2. How many drinks containing alcohol do you have on a typical day when you are drinking?: 1 or 2 3. How often do you have six or more drinks on one occasion?: Never Total Score: 1 Score Reviewed/Action Taken: Yes KRISTINA-7 AMB Questionnaire KRISTINA-7 Date KRISTINA - 7 assessed: 03/07/25 Feeling nervous, anxious, or on edge: 0 = Not at all Not being able to stop or control worryin = Not at all Worrying too much about different things: 0 = Not at all Trouble relaxin = Not at all Being so restless that it is hard to sit still: 0 = Not at all Becoming easily annoyed or irritable: 0 = Not at all Feeling afraid as if something awful might happen: 0 = Not at all Total KRISTINA-7 score (0-4 normal; 5-9 mild; 10-14 moderate; 15-21 severe): 0 Source: Developed by Drs. Xavier Neal, Brianne Flores, Fran Cifuentes and colleagues, with an educational sepideh from [employer]. KRISTINA-7 Assessment Billing KRISTINA-7 Assessment Tool: KRISTINA-7 Assessment 45490 Physical exam (Primary Care) Tobacco/Smoking Status: Tobacco use Status Tobacco use date assessed 03/07/25 03/07/25 08:45 Patient Tobacco Use Status Former Tobacco user 03/07/25 08:45 e-Cigarette/Vaping Use Never Used 03/07/25 08:45 PHQ-9: PHQ-9 Score PHQ-9: Total score 0 03/07/25 08:55 Depression Screening Interpretation: Negative Thrive Assessment: Date of Thrive Assessment Date Thrive assessed 03/07/25 03/07/25 08:55 Currently or been in a relationship where the following occur: No concerns reported Telehealth [facility]health [facility] Location of provider rendering services: practice address Location of patient: address on file Patient Identification confirmed using: Name, : Yes Telehealth method: video (attempted) Patient verbally consented to treatment: Yes Patient verbally consented to billing insurance company: Yes Patient informed of any privacy concerns related to visit: Yes Minutes spent on Phone/Video with Pt.: 16 Coding Level of Care Code Tele Est Pt Level 4 (27658) Diagnoses Diabetes 1.5, managed as type 2 E13.9 Hypertension, essential I10 Anxiety, generalized F41.1 Difficulty sleeping G47.9 Morbid obesity due to excess calories E66.01 Diabetic polyneuropathy associated with type 2 diabetes mellitus E11.42 Diabetes mellitus type: type 2 Diabetes mellitus complication detail: diabetic polyneuropathy Recurrent major depressive disorder, in partial remission F33.41 Active/Remission status: in partial remission Chronic kidney disease, stage 3b N18.32 Nephropathy N28.9 Additional Codes KRISTINA-7 Assessment Billing - KRISTINA-7 Assessment Tool: KRISTINA-7 Assessment 53865 ([id number]) PHQ-9 - 52623 - PHQ-9 Billing: Yes ([id number]) Assessment & Plan Assessment & Plan (1) Diabetes 1.5, managed as type 2: Code(s): E13.9 - Other specified diabetes mellitus without complications Category: Medical (2) Hypertension, essential: Code(s): I10 - Essential (primary) hypertension Category: Medical (3) Anxiety, generalized: Code(s): F41.1 - Generalized anxiety disorder Category: Medical (4) Difficulty sleeping: Code(s): G47.9 - Sleep disorder, unspecified Category: Medical (5) Morbid obesity due to excess calories: Code(s): E66.01 - Morbid (severe) obesity due to excess calories Category: Medical (6) Diabetic neuropathy: Code(s): E11.40 - Type 2 diabetes mellitus with diabetic neuropathy, unspecified Category: Medical Qualifiers: Diabetes mellitus type: type 2 Diabetes mellitus complication detail: diabetic polyneuropathy Qualified Code(s): E11.42 - Type 2 diabetes mellitus with diabetic polyneuropathy (7) Major depression, recurrent: Code(s): F33.9 - Major depressive disorder, recurrent, unspecified Category: Medical Qualifiers: Active/Remission status: in partial remission Qualified Code(s): F33.41 - Major depressive disorder, recurrent, in partial remission (8) Chronic kidney disease, stage 3b: Code(s): N18.32 - Chronic kidney disease, stage 3b Category: Medical (9) Nephropathy: Code(s): N28.9 - Disorder of kidney and ureter, unspecified Category: Medical Plan History - The patient is a 64-year-old female presenting for a request for blood test and management of multiple medical conditions. - Last blood test was conducted in July of the previous year. A new blood test is requested and described as very important. - Blood pressure readings have been consistently normal, specified as 120/84 mmHg, with management including medications such as Amlodipine and Metoprolol. Patient has nurse support once a week for monitoring. - Diabetes is managed with Trulicity 3 mg and long-acting insulin, 32 units. Previous blood sugar readings were not recalled during the visit. - Depression is being managed with Bupropion 150 mg and Citalopram 40 mg. The patient takes Mirtazapine at night for sleep. - The patient reports developing flaky skin around the ears. Using Cecile moisturizer, but not experiencing pain or significant discomfort. No hydrocodone available at home. Problem List - Diabetes Mellitus, type not specified, treated with insulin and Trulicity - Hypertension - Depression - Flaky skin of ears - Urine incontinence Patient Instructions - Obtain blood test as soon as possible; no fasting required. - Call pharmacy for medication refill requests as needed. - Use prescribed hydrocortisone cream for flaky skin around ears, applying it with a fingertip on the surface, not inside the ear. - Continue current medication regimen including Amlodipine, Bupropion, Vitamin D, Citalopram, Folic Acid, Furosemide, Metoprolol, and insulin under current dosages. - Follow up in 3 months. Medications: New hydrocortisone 2.5% 1 appl topical BID 30 days PRN 30 grams 0RF skin irritation
== END 2025-03-07 09:22 | disposition home or self-care (01) ==
LOC: HO.HMCC 08:40
PROVIDERS: PCP Internal Medicine; Visit Provider Internal Medicine
DX: I12.9 Hypertensive chronic kidney disease with stage 1 through stage 4 chronic kidney disease, or unspecified chronic kidney disease (principal); E66.01 Morbid (severe) obesity due to excess calories; E11.42 Type 2 diabetes mellitus with diabetic polyneuropathy; N18.32 Chronic kidney disease, stage 3b; E13.9 Other specified diabetes mellitus without complications; F41.1 Generalized anxiety disorder; G47.9 Sleep disorder, unspecified; F33.41 Major depressive disorder, recurrent, in partial remission; N28.9 Disorder of kidney and ureter, unspecified

== ENCOUNTER → 2025-03-07 08:40 | Outpatient (BNVA) | payer OTHER, SELFPAY | PROVIDERS: PCP Internal Medicine; Visit Provider Internal Medicine | DX: E11.42 Type 2 diabetes mellitus with diabetic polyneuropathy (principal); E11.22 Type 2 diabetes mellitus with diabetic chronic kidney disease; F41.1 Generalized anxiety disorder; G47.9 Sleep disorder, unspecified; E66.01 Morbid (severe) obesity due to excess calories; F33.41 Major depressive disorder, recurrent, in partial remission; I12.9 Hypertensive chronic kidney disease with stage 1 through stage 4 chronic kidney disease, or unspecified chronic kidney disease; N18.32 Chronic kidney disease, stage 3b; N28.9 Disorder of kidney and ureter, unspecified | CPT/HCPCS: 96127 ==

== ENCOUNTER 2025-06-13 08:30 | Outpatient (AMB) | payer OTHER, SELFPAY ==
--- NOTE | 2025-06-13 09:54 | A.OFFPC_ITS ---
Intake Visit Reasons: follow up Allergies orange Allergy (Unknown, Verified 03/07/25 08:44) HIVES Medication List - Last Reconciled 06/13/25 by Evan Bates MD [3xlg adult pull-up As directed] [Adult diapers As directed] amlodipine 10 mg PO .Q AM ascorbic acid (vitamin C) 250 mg PO BID blood-glucose meter (FreeStyle Lite Meter kit) As directed [body-facial wipes Use As directed] bupropion HCl SR 150 mg PO BEDTIME calcium carbonate 500 mg PO ONCE 90 days cholecalciferol (vitamin D3) 25 mcg PO DAILY citalopram 40 mg PO DAILY [comfort bed pads(washable) As directed] dulaglutide 3 mg (0.5 mL) subcut QWEEK 90 days folic acid 1 mg PO DAILY FreeStyle Lite Strips (blood sugar diagnostic) Test blood sugar three times per day NS furosemide 20 mg PO DAILY 90 days hydrocortisone 2.5% 1 appl topical BID PRN 30 days incontinence pad, liner, disp (Dry Comfort pads) As directed lancets (FreeStyle Lancets) Test blood sugar three times per day Lantus Solostar U-100 Insulin (insulin glargine) 32 units (0.32 mL) subcut QPM 90 days NS [latex-free gloves Use As directed. ] metoprolol succinate ER 100 mg PO DAILY mirtazapine 30 mg PO BEDTIME pen needle, diabetic (UltiCare Pen Needle) USE TO INJECT INSULIN ONCE A DAY. [periwick Use As directed at night] [Re-useable underpads As directed] [Walker with wheels As directed] wheelchair Size Large Tobacco use date assessed: 03/07/25 Dental Screening Dental Screen Date: 03/07/25 HPI follow up HPI Details Chief Complaint The patient reports managing diabetes and challenges related to limited mobility. Patient is 64-year-old female with a history of hypertension, depression, vitamin-D deficiency, sleeping difficulty, recurrent leg swelling, diabetes mellitus history of 2 toe amputations secondary to osteomyelitis in the past, developed osteomyelitis vertebral with cold compression ended up having laminectomy with fusion T10 and T12 in 2021 Patient ended up quadriplegic after that, she was in rehab for a while and then was finally discharged home January of 2023 presenting with impaired mobility and chronic care monitoring. Diabetes Mellitus: - Reports checking blood sugars, with mo rning readings varying from 98 to 110 mg/dL and after supper readings from 150 to 170 mg/dL. - No specific dates given, but readings were from the last week. - Medication adherence reported, includtess delaney the use of insulin and addressing previous Trulicity prescription issues. Chronic Kidney Disease Stage 3B: - Previous lab work showed a GFR of 28 a nd creatinine level of 1.82. - Last labs were conducted almost a year ago, necessitating new tests to assess kidney function. - Acknowledges transportation challenges for lab work as she requires assistance to attend medical facilities. - lab order was placed twice but patient never did labs , new order placed Quadriplegia and Mobility Issues: - History of quadriplegia following a ba ck surgery complication. - Wheelchair-bound, with notable difficu lty in walking. - Reports redness in the legs, closely m onitored by a visiting nurse. Hypertension and Chronic Vascular Insufficiency: - Blood pressure monitored regularly by a nurse and noted to be normal. - On amlodipine and furosemide for manag ement. Depression and Sleep Issues: - Diagnosed depression managed with bupr opion and citalopram. - Uses mirtazapine for sleep, with vlad delaney difficulty despite this regimen. Medical History: - Diabetes Mellitus - Chronic Kidney Disease Stage 3B - Quadriplegia following back surgery - Hypertension - Chronic Vascular Insufficiency - Depression Surgical History: - Back surgery with complication leading to quadriplegia Medications: - Amlodipine 10 mg for hypertension - Bupropion 150 mg for depression - Citalopram 40 mg for depression - Trulicity 3 mg for diabetes management - Furosemide 20 mg for chronic vascular insufficiency - Vitamin D supplement - Folic acid - Lentus 32 units daily for diabetes - Metoprolol 100 mg for hypertension - Mirtazapine 30 mg for sleep Problem List - Diabetes Mellitus - Chronic Kidney Disease Stage 3B - Quadriplegia - Hypertension - Chronic Vascular Insufficiency - Depression Assessment and Plan 1. Diabetes Mellitus - Will continue current insulin regimen and monitor blood sugar levels closely. - Encouraged regular blood glucose monit oring, particularly after identifying stability in recent levels. 2. Chronic Kidney Disease Stage 3B - Ordered non-fasting lab tests to reass ess kidney function; arrangements needed for timely lab attendance. 3. Quadriplegia - Continued support with transportation and mobility assistance emphasized. 4. Hypertension - Ongoing monitoring of blood pressure r ecommended with regular nurse visits. 5. Chronic Vascular Insufficiency - Continue current medication to manage vascular issues, with vigilance on the redness reported in the legs. 6. Depression - Maintain existing antidepressant medic ation regimen. - Monitor for any changes in mood or sle ep pattern adjustments. Patient Instructions - Continue taking all prescribed medicat ions as directed. - Perform regular blood sugar checks and keep a record. - Schedule and attend lab tests when pos sible; non-fasting is permissible. - Arrange transportation assistance to t he lab or discuss alternatives. - Monitor redness in legs and report any changes to the nurse. - Continue with current blood pressure a nd depressive disorder medications. Review of Systems General: No fever no chills neurological: No headaches no dizziness ear nose throat: No sore throat no hearing difficulty no ear pain cardiovascular: No syncope, no chest pain, no palpitations gastrointestinal: No nausea vomiting or diarrhea endocrine: No polyuria polydipsia no heat intolerance PFSH Medical History Difficulty sleeping Anxiety, generalized Diabetes 1.5, managed as type 2 Hypertension, essential Surgical History No pertinent past surgical history Family History Other Mental health disorder Social History Housing: Other (mobile home) Alcohol intake: never Patient Tobacco Use Status: Former Tobacco user e-Cigarette/Vaping Use: Never Used service: No Current occupational status: disabled Cognitive needs: No Hearing needs: No Vision needs: No Questionnaire Thrive Questionnaire Date Thrive assessed: 03/07/25 KRISTINA-7 AMB Questionnaire KRISTINA-7 Date KRISTINA - 7 assessed: 03/07/25 Source: Developed by Drs. Xavier Neal, Brianne Flores, Fran Cifuentes and colleagues, with an educational sepideh from [employer]. Physical exam (Primary Care) Tobacco/Smoking Status: Tobacco use Status Tobacco use date assessed 03/07/25 06/13/25 09:55 Patient Tobacco Use Status Former Tobacco user 06/13/25 09:55 e-Cigarette/Vaping Use Never Used 06/13/25 09:55 Thrive Assessment: Date of Thrive Assessment Date Thrive assessed 03/07/25 06/13/25 09:55 Telehealth Telehealth Telehealth Platform: [facility] Location of provider rendering services: practice address Location of patient: address on file Patient Identification confirmed using: Name, : Yes Telehealth method: video (attempted) Patient verbally consented to treatment: Yes Patient verbally consented to billing insurance company: Yes Patient informed of any privacy concerns related to visit: Yes Coding Level of Care Code Tele Est Pt Level 5 (39068) Diagnoses Hypertension, essential I10 Diabetes 1.5, managed as type 2 E13.9 Chronic kidney disease, stage 3b N18.32 Anxiety, generalized F41.1 Difficulty sleeping G47.9 Morbid obesity due to excess calories E66.01 Diabetic polyneuropathy associated with type 2 diabetes mellitus E11.42 Diabetes mellitus type: type 2 Diabetes mellitus complication detail: diabetic polyneuropathy Recurrent major depressive disorder, in partial remission F33.41 Active/Remission status: in partial remission Fecal soiling due to fecal incontinence R15.9 Incontinence overflow, urine N39.490 Chronic stasis dermatitis I87.2 Time Spent (min) 40 Comment reviewing chart / labs / face to face discussion / coordination of care Assessment & Plan Assessment & Plan (1) Hypertension, essential: Code(s): I10 - Essential (primary) hypertension Category: Medical (2) Diabetes 1.5, managed as type 2: Code(s): E13.9 - Other specified diabetes mellitus without complications Category: Medical (3) Chronic kidney disease, stage 3b: Code(s): N18.32 - Chronic kidney disease, stage 3b Category: Medical (4) Anxiety, generalized: Code(s): F41.1 - Generalized anxiety disorder Category: Medical (5) Difficulty sleeping: Code(s): G47.9 - Sleep disorder, unspecified Category: Medical (6) Morbid obesity due to excess calories: Code(s): E66.01 - Morbid (severe) obesity due to excess calories Category: Medical (7) Diabetic neuropathy: Code(s): E11.40 - Type 2 diabetes mellitus with diabetic neuropathy, unspecified Category: Medical Qualifiers: Diabetes mellitus type: type 2 Diabetes mellitus complication detail: diabetic polyneuropathy Qualified Code(s): E11.42 - Type 2 diabetes mellitus with diabetic polyneuropathy (8) Major depression, recurrent: Code(s): F33.9 - Major depressive disorder, recurrent, unspecified Category: Medical Qualifiers: Active/Remission status: in partial remission Qualified Code(s): F33.41 - Major depressive disorder, recurrent, in partial remission (9) Fecal soiling due to fecal incontinence: Code(s): R15.9 - Full incontinence of feces Category: Medical (10) Incontinence overflow, urine: Code(s): N39.490 - Overflow incontinence Category: Medical (11) Chronic stasis dermatitis: Code(s): I87.2 - Venous insufficiency (chronic) (peripheral) Category: Medical Plan Chief Complaint The patient reports managing diabetes and challenges related to limited mobility. Patient is 64-year-old female with a history of hypertension, depression, vitamin-D deficiency, sleeping difficulty, recurrent leg swelling, diabetes mellitus history of 2 toe amputations secondary to osteomyelitis in the past, developed osteomyelitis vertebral with cold compression ended up having laminectomy with fusion T10 and T12 in 2021 Patient ended up quadriplegic after that, she was in rehab for a while and then was finally discharged home January of 2023 presenting with impaired mobility and chronic care monitoring. Diabetes Mellitus: - Reports checking blood sugars, with morning readings varying from 98 to 110 mg/dL and after supper readings from 150 to 170 mg/dL. - No specific dates given, but readings were from the last week. - Medication adherence reported, including the use of insulin and addressing previous Trulicity prescription issues. Chronic Kidney Disease Stage 3B: - Previous lab work showed a GFR of 28 and creatinine level of 1.82. - Last labs were conducted almost a year ago, necessitating new tests to assess kidney function. - Acknowledges transportation challenges for lab work as she requires assistance to attend medical facilities. - lab order was placed twice but patient never did labs , new order placed Quadriplegia and Mobility Issues: - History of quadriplegia following a back surgery complication. - Wheelchair-bound, with notable difficulty in walking. - Reports redness in the legs, closely monitored by a visiting nurse. Hypertension and Chronic Vascular Insufficiency: - Blood pressure monitored regularly by a nurse and noted to be normal. - On amlodipine and furosemide for management. Depression and Sleep Issues: - Diagnosed depression managed with bupropion and citalopram. - Uses mirtazapine for sleep, with ongoing difficulty despite this regimen. Medical History: - Diabetes Mellitus - Chronic Kidney Disease Stage 3B - Quadriplegia following back surgery - Hypertension - Chronic Vascular Insufficiency - Depression Surgical History: - Back surgery with complication leading to quadriplegia Medications: - Amlodipine 10 mg for hypertension - Bupropion 150 mg for depression - Citalopram 40 mg for depression - Trulicity 3 mg for diabetes management - Furosemide 20 mg for chronic vascular insufficiency - Vitamin D supplement - Folic acid - Lentus 32 units daily for diabetes - Metoprolol 100 mg for hypertension - Mirtazapine 30 mg for sleep Problem List - Diabetes Mellitus - Chronic Kidney Disease Stage 3B - Quadriplegia - Hypertension - Chronic Vascular Insufficiency - Depression Assessment and Plan 1. Diabetes Mellitus - Will continue current insulin regimen and monitor blood sugar levels closely. - Encouraged regular blood glucose monitoring, particularly after identifying stability in recent levels. 2. Chronic Kidney Disease Stage 3B - Ordered non-fasting lab tests to reassess kidney function; arrangements needed for timely lab attendance. 3. Quadriplegia - Continued support with transportation and mobility assistance emphasized. 4. Hypertension - Ongoing monitoring of blood pressure recommended with regular nurse visits. 5. Chronic Vascular Insufficiency - Continue current medication to manage vascular issues, with vigilance on the redness reported in the legs. 6. Depression - Maintain existing antidepressant medication regimen. - Monitor for any changes in mood or sleep pattern adjustments. Patient Instructions - Continue taking all prescribed medications as directed. - Perform regular blood sugar checks and keep a record. - Schedule and attend lab tests when possible; non-fasting is permissible. - Arrange transportation assistance to the lab or discuss alternatives. - Monitor redness in legs and report any changes to the nurse. - Continue with current blood pressure and depressive disorder medications. Orders: Orders Hemoglobin A1c Today E13.9 - Other specified diabetes mellitus without complications, I10 - Essential (primary) hypertension, N18.32 - Chronic kidney disease, stage 3b Microalbumin, Random (w Creat) Today E13.9 - Other specified diabetes mellitus without complications, I10 - Essential (primary) hypertension, N18.32 - Chronic kidney disease, stage 3b Vitamin B12 Today E13.9 - Other specified diabetes mellitus without complications, I10 - Essential (primary) hypertension, N18.32 - Chronic kidney disease, stage 3b Ferritin Today E13.9 - Other specified diabetes mellitus without complications, I10 - Essential (primary) hypertension, N18.32 - Chronic kidney disease, stage 3b Complete Blood Count Auto Diff Today E13.9 - Other specified diabetes mellitus without complications, I10 - Essential (primary) hypertension, N18.32 - Chronic kidney disease, stage 3b Comprehensive Met. Panel Today E13.9 - Other specified diabetes mellitus without complications, I10 - Essential (primary) hypertension, N18.32 - Chronic kidney disease, stage 3b TSH reflex Free T4 Today E13.9 - Other specified diabetes mellitus without complications, I10 - Essential (primary) hypertension, N18.32 - Chronic kidney disease, stage 3b LDL Cholesterol Direct Today E13.9 - Other specified diabetes mellitus without complications, I10 - Essential (primary) hypertension, N18.32 - Chronic kidney disease, stage 3b Vitamin D 25-OH (D2 and D3) Today E13.9 - Other specified diabetes mellitus without complications, I10 - Essential (primary) hypertension, N18.32 - Chronic kidney disease, stage 3b
== END 2025-06-13 09:59 | disposition home or self-care (01) ==
LOC: HO.HMCC 08:30
PROVIDERS: PCP Internal Medicine; Visit Provider Internal Medicine
DX: I12.9 Hypertensive chronic kidney disease with stage 1 through stage 4 chronic kidney disease, or unspecified chronic kidney disease (principal); E11.42 Type 2 diabetes mellitus with diabetic polyneuropathy; E13.9 Other specified diabetes mellitus without complications; N18.32 Chronic kidney disease, stage 3b; E66.01 Morbid (severe) obesity due to excess calories; F41.1 Generalized anxiety disorder; G47.9 Sleep disorder, unspecified; F33.41 Major depressive disorder, recurrent, in partial remission; R15.9 Full incontinence of feces; N39.490 Overflow incontinence; I87.2 Venous insufficiency (chronic) (peripheral)

== ENCOUNTER 2025-07-25 08:54 | Outpatient (AMB) | payer OTHER, SELFPAY ==
--- NOTE | 2025-07-25 09:49 | A.OFFPC_ITS ---
Intake Visit Reasons: [facility] [phone] Allergies orange Allergy (Unknown, Verified 03/07/25 08:44) HIVES Medication List - Last Reconciled 07/25/25 by Evan Bates MD [3xlg adult pull-up As directed] [Adult diapers As directed] amlodipine 10 mg PO .Q AM ascorbic acid (vitamin C) 250 mg PO BID blood-glucose meter (FreeStyle Lite Meter kit) As directed [body-facial wipes Use As directed] bupropion HCl SR 150 mg PO BEDTIME calcium carbonate 500 mg PO ONCE 90 days cholecalciferol (vitamin D3) 25 mcg PO DAILY citalopram 40 mg PO DAILY [comfort bed pads(washable) As directed] dulaglutide 3 mg (0.5 mL) subcut QWEEK 90 days folic acid 1 mg PO DAILY FreeStyle Lite Strips (blood sugar diagnostic) Test blood sugar three times per day NS furosemide 20 mg PO DAILY 90 days hydrocortisone 2.5% 1 appl topical BID PRN 30 days incontinence pad, liner, disp (Dry Comfort pads) As directed lancets (FreeStyle Lancets) Test blood sugar three times per day Lantus Solostar U-100 Insulin (insulin glargine) 32 units (0.32 mL) subcut QPM 90 days NS [latex-free gloves Use As directed. ] metoprolol succinate ER 100 mg PO DAILY mirtazapine 30 mg PO BEDTIME pen needle, diabetic (UltiCare Pen Needle) USE TO INJECT INSULIN ONCE A DAY. [periwick Use As directed at night] [Re-useable underpads As directed] [Walker with wheels As directed] wheelchair Size Large Tobacco use date assessed: 03/07/25 Dental Screening Dental Screen Date: 03/07/25 [facility] [id number] HPI Details History The patient is a 64-year-old female presenting with wound on the right elbow and bilateral lower extremity swelling. Patient is bed ridden Right Elbow Wound: - Presented initially at [facility] on July 12. - Described as a 3 cm open wound with mu coid discharge. - Treated with doxycycline for 7 days. - Currently reported as healing well. Bilateral Lower Extremity Swelling: - Initially noted with left side more sw ollen than right. - Associated with stasis dermatitis. - evaluation included ultrasound of lowe r extremities showing no Deep Vein Thrombosis (DVT). Impaired Mobility: - for detail review my previous notes - Unable to stand without assistance. Medical History: - Hypertension - Depression - Anxiety - Diabetes - Chronic lower extremity swelling Medications: - Amlodipine 10 mg daily for hypertensio n. - Bupropion for depression. - Citalopram for anxiety and depression. - Vitamin D supplement. - Trulicity 3 mg weekly for diabetes. - Furosemide 20 mg for chronic lower ext remity swelling. - Lantus 32 units daily for diabetes. - Metoprolol 100 mg daily for hypertensi on. - Mirtazapine 30 mg at bedtime for sleep . Social History: - Dependent on in-home care. - Receives assistance from a visiting CN A five days per week. - Report difficulty with mobility and fu nctional status; unable to stand independently. Problem List - Open wound of the right elbow - Bilateral lower extremity edema - Impaired mobility - Hypertension - Depression - Anxiety - Diabetes Mellitus - Chronic kidney disease with reduced fi ltration rate Diagnostic results - Labs: Hemoglobin 12.0 g/dL, White bloo d cell count 8.6 x10^3/?L, Blood glucose 162 mg/dL, Creatinine 1.73 mg/dL. - Tests and Diagnostics: Ultrasound of leandro peterson extremities showed no Deep Vein Thrombosis (DVT). Patient Instructions - Continue prescribed medications. - Consider personal carer evaluation for declining renal functions . - Consider assessment by a rehabilitatio n specialist for a mobility device. - Maintain communication with healthcare providers regarding any changes in symptoms. f/u 3 M Review of Systems General: No fever no chills neurological: No headaches no dizziness ear nose throat: No sore throat no hearing difficulty no ear pain cardiovascular: No syncope, no chest pain, no palpitations gastrointestinal: No nausea vomiting or diarrhea [facility] Medical History Difficulty sleeping Anxiety, generalized Diabetes 1.5, managed as type 2 Hypertension, essential Surgical History No pertinent past surgical history Family History Other Mental health disorder Social History Housing: Other Alcohol intake: never Patient Tobacco Use Status: Former Tobacco user e-Cigarette/Vaping Use: Never Used service: No Current occupational status: disabled Cognitive needs: No Hearing needs: No Vision needs: No Questionnaire Thrive Questionnaire Date Thrive assessed: 03/07/25 KRISTINA-7 AMB Questionnaire KRISTINA-7 Date KRISTINA - 7 assessed: 03/07/25 Source: Developed by Drs. Xavier Neal, Brianne Flores, Fran Cifuentes and colleagues, with an educational sepideh from [employer]. Physical exam (Primary Care) Tobacco/Smoking Status: Tobacco use Status Tobacco use date assessed 03/07/25 07/25/25 09:49 Patient Tobacco Use Status Former Tobacco user 07/25/25 09:49 e-Cigarette/Vaping Use Never Used 07/25/25 09:49 Thrive Assessment: Date of Thrive Assessment Date Thrive assessed 03/07/25 07/25/25 09:49 Telehealth Telehealth Telehealth Platform: [facility] Location of provider rendering services: practice address Location of patient: address on file Patient Identification confirmed using: Name, : Yes Telehealth method: video (attempted) Patient verbally consented to treatment: Yes Patient verbally consented to billing insurance company: Yes Patient informed of any privacy concerns related to visit: Yes Coding Level of Care Code Tele Est Pt Level 4 (62791) Diagnoses Hypertension, essential I10 Diabetes 1.5, managed as type 2 E13.9 Chronic kidney disease, stage 3b N18.32 Anxiety, generalized F41.1 Difficulty sleeping G47.9 Morbid obesity due to excess calories E66.01 Diabetic polyneuropathy associated with type 2 diabetes mellitus E11.42 Diabetes mellitus type: type 2 Diabetes mellitus complication detail: diabetic polyneuropathy Recurrent major depressive disorder, in partial remission F33.41 Active/Remission status: in partial remission Chronic stasis dermatitis I87.2 Time Spent (min) 30 Comment Hospital notes review / chart/ lab review/ discussion with patient, documentation Assessment & Plan Assessment & Plan (1) Hypertension, essential: Code(s): I10 - Essential (primary) hypertension Category: Medical (2) Diabetes 1.5, managed as type 2: Code(s): E13.9 - Other specified diabetes mellitus without complications Category: Medical (3) Chronic kidney disease, stage 3b: Code(s): N18.32 - Chronic kidney disease, stage 3b Category: Medical (4) Anxiety, generalized: Code(s): F41.1 - Generalized anxiety disorder Category: Medical (5) Difficulty sleeping: Code(s): G47.9 - Sleep disorder, unspecified Category: Medical (6) Morbid obesity due to excess calories: Code(s): E66.01 - Morbid (severe) obesity due to excess calories Category: Medical (7) Diabetic neuropathy: Code(s): E11.40 - Type 2 diabetes mellitus with diabetic neuropathy, unspecified Category: Medical Qualifiers: Diabetes mellitus type: type 2 Diabetes mellitus complication detail: diabetic polyneuropathy Qualified Code(s): E11.42 - Type 2 diabetes mellitus with diabetic polyneuropathy (8) Major depression, recurrent: Code(s): F33.9 - Major depressive disorder, recurrent, unspecified Category: Medical Qualifiers: Active/Remission status: in partial remission Qualified Code(s): F33.41 - Major depressive disorder, recurrent, in partial remission (9) Chronic stasis dermatitis: Code(s): I87.2 - Venous insufficiency (chronic) (peripheral) Category: Medical Plan History The patient is a 64-year-old female presenting with wound on the right elbow and bilateral lower extremity swelling. Patient is bed ridden Right Elbow Wound: - Presented initially at [facility] on July 12. - Described as a 3 cm open wound with mucoid discharge. - Treated with doxycycline for 7 days. - Currently reported as healing well. Bilateral Lower Extremity Swelling: - Initially noted with left side more swollen than right. - Associated with stasis dermatitis. - evaluation included ultrasound of lower extremities showing no Deep Vein Thrombosis (DVT). Impaired Mobility: - for detail review my previous notes - Unable to stand without assistance. Medical History: - Hypertension - Depression - Anxiety - Diabetes - Chronic lower extremity swelling Medications: - Amlodipine 10 mg daily for hypertension. - Bupropion for depression. - Citalopram for anxiety and depression. - Vitamin D supplement. - Trulicity 3 mg weekly for diabetes. - Furosemide 20 mg for chronic lower extremity swelling. - Lantus 32 units daily for diabetes. - Metoprolol 100 mg daily for hypertension. - Mirtazapine 30 mg at bedtime for sleep. Social History: - Dependent on in-home care. - Receives assistance from a visiting SENIOR TECHNICAL RECRUITER five days per week. - Report difficulty with mobility and functional status; unable to stand independently. Problem List - Open wound of the right elbow - Bilateral lower extremity edema - Impaired mobility - Hypertension - Depression - Anxiety - Diabetes Mellitus - Chronic kidney disease with reduced filtration rate Diagnostic results - Labs: Hemoglobin 12.0 g/dL, White blood cell count 8.6 x10^3/?L, Blood glucose 162 mg/dL, Creatinine 1.73 mg/dL. - Tests and Diagnostics: Ultrasound of lower extremities showed no Deep Vein Thrombosis (DVT). Patient Instructions - Continue prescribed medications. - Consider personal carer evaluation for declining renal functions . - Consider assessment by a rehabilitation services coordinator for a mobility device. - Maintain communication with healthcare providers regarding any changes in symptoms. f/u 3 M
== END 2025-07-25 10:14 | disposition home or self-care (01) ==
LOC: HO.HMCC 08:54
PROVIDERS: PCP Internal Medicine; Visit Provider Internal Medicine
DX: I10 Essential (primary) hypertension (principal); E13.9 Other specified diabetes mellitus without complications; N18.32 Chronic kidney disease, stage 3b; F41.1 Generalized anxiety disorder; G47.9 Sleep disorder, unspecified; E66.01 Morbid (severe) obesity due to excess calories; E11.42 Type 2 diabetes mellitus with diabetic polyneuropathy; F33.41 Major depressive disorder, recurrent, in partial remission; I87.2 Venous insufficiency (chronic) (peripheral)